=== PATIENT | female | born 1970 | race Hispanic/Latino ===

== ENCOUNTER → 2017-12-21 | Day surgery (SDC) | payer OTHER ==
[2017-12-20 14:46] LABS: BASOPHILS # (AUTO) 0.1 (0.0-0.1); BASOPHILS % 0.9 % (0.0-1.0); EOSINOPHILS # (AUTO) 0.2 (0.0-0.4); EOSINOPHILS % 1.6 % (0.0-6.0); HEMATOCRIT 41.4 % (34.2-44.1); HEMOGLOBIN 13.4 g/dL (12.0-16.0); LYMPHOCYTES # (AUTO) 2.4 (1.0-3.2); LYMPHOCYTES % 18.3 % (18.0-39.1); MEAN CORPUSCULAR HEMOGLOBIN 31.8 pg (28-32); MEAN CORPUSCULAR HGB CONC 32.4 g/dL (31-35); MEAN CORPUSCULAR VOLUME 98.3 fL (81-99); MONOCYTES # (AUTO) 1.2 (0.2-0.8); MONOCYTES % 9.1 % (4.4-11.3); NEUTROPHILS # (AUTO) 9.3 (2.1-6.9); NEUTROPHILS % 69.7 % (38.7-80.0); PLATELET COUNT 348 x10e3/uL (140-360); RED BLOOD COUNT 4.21 x10e6/uL (3.6-5.1)
[2017-12-20 14:59] LABS: INR 0.84; PROTHROMBIN TIME 12.3 seconds (11.9-14.5)
[2017-12-20 15:06] LABS: ALANINE AMINOTRANSFERASE 10 IU/L (0-55); ALBUMIN/GLOBULIN RATIO 1.2 (0.8-2.0); ALKALINE PHOSPHATASE 51 IU/L (40-150); ANION GAP 13.7 mmol/L (8-16); BLOOD UREA NITROGEN 24 mg/dL (7-26); BUN/CREATININE RATIO 24 (6-25); CALCIUM 9.2 mg/dL (8.4-10.2); CARBON DIOXIDE 22 mmol/L (22-29); CHLORIDE 103 mmol/L (98-107); CREATININE, SERUM 0.98 mg/dL (0.57-1.11); EST GLOMERULAR FILTRATION RATE > 60 ML/MIN (60-); GLUCOSE 96 mg/dL (74-118); POTASSIUM 3.7 mmol/L (3.5-5.1); SODIUM 135 mmol/L (136-145)
[2017-12-21] VITALS (12 sets, daily range): BP systolic 78–132; BP diastolic 59–84
[~2017-12-21] VITALS: Ht 157.5 cm; Wt 117.9 kg
[~2017-12-21] MED LIST: ALBUTEROL0.63 MG/3 PO; AMLODIPINE BESY10 MG PO; AZITHROMYCIN250 MG PO; FE C TABLET1 EACH PO; FENTANYL CITRATE/PF 100MCG/2 ML INJ ONE; FLAGYL250 MG PO; FLUOXETINE HCL20 MG PO; FOLIC ACID1 MG PO; HEPARIN SOD (PORCINE) 1000 UNIT/ML 30ML ONE; HYDROCHLOROTHIA25 MG PO; IOPAMIDOL 370 MG/ML 200 ML INFUS..BTL INJ ONE; LASIX40 MG PO; LEVAQUIN500 MG PO; LIDOCAINE HCL 1% LOCAL INJ 20 ML VIAL ONE; LISINOPRIL10 MG PO; MIDAZOLAM HCL 2 MG/2 ML VIAL ONE; MULTIVITAMINS1 EAC7 PO; NEXIUM20 MG PO; NITROGLYCERIN/D5W 200 MCG/ML 250 ML ONE; PREDNISONE10 MG PO; PREDNISONE5 MG PO; PROAIR HFA INH8.5 GM; SINGULAIR10 MG PO; SODIUM CHLORIDE 0.9% 1000ML 1,000 ML ONE; SYMBICORT 80-10.2 GM INH; TOPAMAX25 MG PO; TUMERIC PO; VERAPAMIL HCL 2.5 MG/ML 2 ML VIAL ONE; VITAMIN D1000 UNI1 PO; VITAMIN E400 UNIT PO; XANAX0.5 MG PO; ZESTRIL20 MG PO
--- OUTSIDE RECORDS SUMMARY | 2017-12-21 07:38 | XMS REPORT ---
Author Author [facility] Address Unknown Phone Unavailable Care Team Providers Care Director Of Digital Technology Name Role Phone Unavailable Unavailable Problems This patient has no known problems. Allergies, Adverse Reactions, Alerts This patient has no known allergies or adverse reactions. Medications This patient has no known medications. Encounters Start Date/Time End Date/Time Encounter Type Admission Type Attending Clinicians Care Facility Care Department Encounter ID 2017-03-23 00:00:00 2017-03-24 00:00:00 [facility] [id number]
--- NOTE | 2017-12-21 16:33 | Operative Report ---
DATE OF PROCEDURE: December 21, 2017 INDICATION FOR PROCEDURE: Is dyspnea on exertion and chest pain. PRE-SEDATION ASSESSMENT: Medical history, social history and previous experience with anesthesia were reviewed as documented in the preoperative medical record. Results of relevant diagnostic studies were reviewed. Planned choice of anesthesia, risks, complications, benefits and alternatives were discussed. Patient deemed appropriate candidate for planned choice of anesthesia. CONSENT: The benefits, risks, complications and alternatives to the procedure were discussed with the patient, and informed consent was obtained from patient or her surrogate. MEDICATIONS: Please see nursing notes for medications administered during the procedure. PROCEDURES PERFORMED: 1. Right heart catheterization. 2. Left heart catheterization. 3. Coronary angiography. PROCEDURE DETAILS: Patient was brought to the cardiac catheterization laboratory in a fasting state. Right wrist and right groin were prepped and draped in a sterile fashion, and 1% lidocaine was used to infiltrate the right wrist over the right radial artery. A 6-Indonesian Slender sheath was placed in the right radial artery using the modified Seldinger technique. Coronary angiography was performed using a RotoPop diagnostic catheter to engage both the RCA and LCA as well as to perform the left heart catheterization. Multiple orthogonal views were obtained of each coronary artery. All catheters were removed over a guidewire. The access site was closed using a TR band. For right heart cath, the right common femoral vein was accessed using ultrasound guidance and modified Seldinger technique. A 6-Indonesian sheath was inserted in the right common femoral artery, and right heart cath was performed using a 6-Indonesian [place]-Jorge L catheter. Sheath was removed under manual compression to achieve hemostasis. Case ended without any complications. Estimated blood loss 20 mL. FINDINGS: Left main coronary artery: Large caliber and short, normal. Left anterior descending: Large vessel, goes to the apex. No significant coronary artery disease. Left circumflex: Very large dominant vessel. No significant coronary artery disease. Ramus intermedius: Moderate-sized vessel. No significant coronary artery disease. Right coronary artery: Small, non-dominant RCA. No significant coronary artery disease, Pressures: Aortic pressure 94/64. Mean aortic pressure 79. LV pressure 98/8. LV end-diastolic pressure 20. RA pressure 17/14/13. RV pressure 42/9. End-diastolic pressure of 19. PA pressure 39/20 with mean PA pressure of 26. Pulmonary capillary wedge pressure 22/21/15. COMPLICATIONS: None. SPECIMEN REMOVED: None. IMPLANTS: None. ESTIMATED BLOOD LOSS: 20 mL. RECOMMENDATIONS: 1. Usual post-PCI care until TR band removal. 2. Continue optimal medical therapy and risk-factor control. 3. Follow up in the office 2 weeks post procedure for further management. Thank you for this consult. Job#: [id number]
== END | disposition home or self-care (01) ==
LOC: CATH LAB 07:35
PROVIDERS: ATTEND Internal Medicine
DX: I25.10 Atherosclerotic heart disease of native coronary artery without angina pectoris (principal); I83.92 Asymptomatic varicose veins of left lower extremity; I10 Essential (primary) hypertension; J45.909 Unspecified asthma, uncomplicated; Z72.0 Tobacco use; Z01.812 Encounter for preprocedural laboratory examination; Z68.42 Body mass index [BMI] 45.0-49.9, adult
CPT/HCPCS: 36415; 80053; 81025; 85025; 85610; 93460; J1644; J2001; J2250; J7030; Q9967

== ENCOUNTER 2018-06-02 21:44 | Emergency (ER) | payer SELFPAY ==
[~2018-06-02] VITALS: Ht 157.5 cm; Wt 104.6 kg
[~2018-06-02 21:44] MED LIST changes: -FENTANYL CITRATE/PF 100MCG/2 ML INJ ONE; -HEPARIN SOD (PORCINE) 1000 UNIT/ML 30ML ONE; -IOPAMIDOL 370 MG/ML 200 ML INFUS..BTL INJ ONE; -LIDOCAINE HCL 1% LOCAL INJ 20 ML VIAL ONE; -MIDAZOLAM HCL 2 MG/2 ML VIAL ONE; -NITROGLYCERIN/D5W 200 MCG/ML 250 ML ONE; -SODIUM CHLORIDE 0.9% 1000ML 1,000 ML ONE; -VERAPAMIL HCL 2.5 MG/ML 2 ML VIAL ONE
[2018-06-02 23:22] VITALS: BP 129/82
== END 2018-06-02 23:13 | disposition home or self-care (01) ==
LOC: FSED 21:44
DX: L03.011 Cellulitis of right finger (principal); I10 Essential (primary) hypertension
CPT/HCPCS: 99283

== ENCOUNTER 2018-06-22 15:33 | Emergency (ER) | payer SELFPAY ==
[~2018-06-22] VITALS: Ht 157.5 cm; Wt 104.3 kg
[2018-06-22] MEDS ORDERED: ALBUTEROL SULF 0.083% NEB SOLN 3 ML NEB ONE (15:46)
[2018-06-22] MEDS ORDERED: IPRATROPIUM BROMIDE 0.02% 2.5 ML NEB ONE (15:46)
[2018-06-22] MEDS ORDERED: ALBUTEROL/IPRATROPIUM 3 ML NEB NEB ONE (16:00)
[2018-06-22] MEDS ORDERED: METHYLPREDNISOLONE SOD SUCC 125 MG/2ML VIAL IV ONE (16:00)
[2018-06-22 16:19] LABS: BASOPHILS # (AUTO) 0.1 (0.0-0.1); BASOPHILS % 0.8 % (0.0-1.0); EOSINOPHILS # (AUTO) 0.2 (0.0-0.4); EOSINOPHILS % 1.9 % (0.0-6.0); HEMATOCRIT 37.9 % (34.2-44.1); LYMPHOCYTES # (AUTO) 3.7 (1.0-3.2); LYMPHOCYTES % 31.2 % (18.0-39.1); MEAN CORPUSCULAR HEMOGLOBIN 31.8 pg (28-32); MEAN CORPUSCULAR HGB CONC 34.3 g/dL (31-35); MEAN CORPUSCULAR VOLUME 92.7 fL (81-99); MONOCYTES % 8.4 % (4.4-11.3); NEUTROPHILS # (AUTO) 6.8 (2.1-6.9); NEUTROPHILS % 57.2 % (38.7-80.0); PLATELET COUNT 461 x10e3/uL (140-360); RED BLOOD COUNT 4.09 x10e6/uL (3.6-5.1); RED CELL DISTRIBUTION WIDTH 13.6 % (11.7-14.4)
[2018-06-22 16:41] LABS: ALANINE AMINOTRANSFERASE 24 IU/L (0-55); ALBUMIN 3.9 g/dL (3.5-5.0); ALBUMIN/GLOBULIN RATIO 1.3 (0.8-2.0); ALKALINE PHOSPHATASE 56 IU/L (40-150); ANION GAP 13.9 mmol/L (8-16); BLOOD UREA NITROGEN 18 mg/dL (7-26); BUN/CREATININE RATIO 20 (6-25); CALCIUM 9.6 mg/dL (8.4-10.2); CARBON DIOXIDE 23 mmol/L (22-29); CHLORIDE 102 mmol/L (98-107); CREATININE, SERUM 0.91 mg/dL (0.57-1.11); EST GLOMERULAR FILTRATION RATE > 60 ML/MIN (60-); GLUCOSE 109 mg/dL (74-118); POTASSIUM 3.9 mmol/L (3.5-5.1); SODIUM 135 mmol/L (136-145)
--- NOTE | 2018-06-22 17:00 | NUR ---
PT AMBULATORY TO RESTROOM AT THIS TIME FOR UA, NAD NOTED. BREATHING EVEN/UNLABORED.
--- NOTE | 2018-06-22 17:20 | Diagnostic Imaging Report ---
EXAMINATION: CHEST 2 VIEWS INDICATION: Sepsis. COMPARISON: None FINDINGS: TUBES and LINES: None. LUNGS: Lungs are well inflated. Minimal patchy left basilar opacity, likely atelectasis. There is no evidence of pneumonia or pulmonary edema. PLEURA: No pleural effusion or pneumothorax. HEART AND MEDIASTINUM: The cardiomediastinal silhouette is unremarkable. BONES AND SOFT TISSUES: No acute osseous abnormality. UPPER ABDOMEN: No free air under the diaphragm. Cholecystectomy clips project over the right upper quadrant. IMPRESSION: No acute radiographic abnormality. Signed by: Dr. Anabel Young MD on 06/22/2018 5:16 PM
[2018-06-22 17:42] LABS: BILIRUBIN,URINE NEGATIVE (NEGATIVE); CLARITY,URINE CLEAR (CLEAR); COLOR,URINE YELLOW (YELLOW); KETONES,URINE NEGATIVE (NEGATIVE); LEUKOCYTE ESTERASE ,URINE NEGATIVE (NEGATIVE); NITRITE,URINE NEGATIVE (NEGATIVE); PROTEIN,URINE DIPSTICK NEGATIVE (NEGATIVE); URINE UROBILINOGEN 0.2 mg/dL (0.2 - 1)
[2018-06-22 17:46] LABS: BACTERIA,URINE FEW /HPF; EPITHELIAL CELLS,URINE MODERATE /LPF
[2018-06-22 18:52] VITALS: BP 118/88
== END 2018-06-22 19:15 | disposition home or self-care (01) ==
LOC: ER 15:33
DX: J45.31 Mild persistent asthma with (acute) exacerbation (principal); Z87.891 Personal history of nicotine dependence; I10 Essential (primary) hypertension; K21.9 Gastro-esophageal reflux disease without esophagitis
CPT/HCPCS: 36415; 71046; 80053; 81001; 83605; 84702; 85025; 87040; 87070; 87086; 87205; 87400; 93005; 94640; 99284; J2930

== ENCOUNTER 2019-01-28 19:25 | Emergency (ER) | payer OTHER ==
[~2019-01-28] VITALS: Ht 157.5 cm; Wt 104.3 kg
[2019-01-28] MEDS ORDERED: GABAPENTIN 100 MG CAP PO STA (20:23)
[2019-01-28 21:16] LABS: BASOPHILS # (AUTO) 0.1 (0.0-0.1); BASOPHILS % 1.1 % (0.0-1.0); EOSINOPHILS # (AUTO) 0.5 (0.0-0.4); EOSINOPHILS % 5.2 % (0.0-6.0); HEMOGLOBIN 12.4 g/dL (12.0-16.0); LYMPHOCYTES # (AUTO) 2.9 (1.0-3.2); LYMPHOCYTES % 31.2 % (18.0-39.1); MEAN CORPUSCULAR HEMOGLOBIN 31.1 pg (28-32); MEAN CORPUSCULAR HGB CONC 31.8 g/dL (31-35); MEAN CORPUSCULAR VOLUME 97.7 fL (81-99); MONOCYTES % 11.1 % (4.4-11.3); NEUTROPHILS # (AUTO) 4.7 (2.1-6.9); PLATELET COUNT 370 x10e3/uL (140-360); RED BLOOD COUNT 3.99 x10e6/uL (3.6-5.1); RED CELL DISTRIBUTION WIDTH 13.2 % (11.7-14.4)
[2019-01-28 21:34] LABS: ALANINE AMINOTRANSFERASE 15 IU/L (0-55); ALBUMIN 3.7 g/dL (3.5-5.0); ALBUMIN/GLOBULIN RATIO 1.4 (0.8-2.0); ALKALINE PHOSPHATASE 52 IU/L (40-150); ANION GAP 14.6 mmol/L (8-16); BLOOD UREA NITROGEN 29 mg/dL (7-26); BUN/CREATININE RATIO 31 (6-25); CALCIUM 8.8 mg/dL (8.4-10.2); CARBON DIOXIDE 25 mmol/L (22-29); CHLORIDE 105 mmol/L (98-107); CREATINE KINASE 90 IU/L (29-168); CREATININE, SERUM 0.95 mg/dL (0.57-1.11); EST GLOMERULAR FILTRATION RATE > 60 ML/MIN (60-); GLUCOSE 101 mg/dL (74-118); MAGNESIUM 2.1 MG/DL (1.3-2.1); POTASSIUM 4.6 mmol/L (3.5-5.1); SODIUM 140 mmol/L (136-145)
[2019-01-28] MEDS ORDERED: NEURONTIN300 MG PO (22:14)
[2019-01-28 23:24] VITALS: BP 153/88
== END 2019-01-28 22:21 | disposition home or self-care (01) ==
LOC: ER 19:25
DX: R10.9 Unspecified abdominal pain (principal); M54.5 Low back pain; M79.10 Myalgia, unspecified site
CPT/HCPCS: 36415; 80053; 82550; 82553; 83735; 84484; 85025; 99283

== ENCOUNTER 2019-10-20 12:47 | Emergency (ER) | payer OTHER ==
[~2019-10-20] VITALS: Ht 157.5 cm; Wt 104.3 kg
[~2019-10-20 12:47] MED LIST changes: +NEURONTIN300 MG PO
[2019-10-20] MEDS ORDERED: SODIUM CHLORIDE 0.9% 1000ML 1,000 ML IV STA (13:04)
[2019-10-20] MEDS ORDERED: PANTOPRAZOLE 40 MG 10ML VIAL IV STA (13:04)
[2019-10-20 13:38] LABS: BASOPHILS # (AUTO) 0.1 (0.0-0.1); EOSINOPHILS # (AUTO) 0.2 (0.0-0.4); EOSINOPHILS % 2.4 % (0.0-6.0); HEMATOCRIT 39.3 % (34.2-44.1); HEMOGLOBIN 12.3 g/dL (12.0-16.0); LYMPHOCYTES # (AUTO) 1.7 (1.0-3.2); LYMPHOCYTES % 17.9 % (18.0-39.1); MEAN CORPUSCULAR HGB CONC 31.3 g/dL (31-35); MEAN CORPUSCULAR VOLUME 95.9 fL (81-99); MONOCYTES # (AUTO) 0.9 (0.2-0.8); MONOCYTES % 9.4 % (4.4-11.3); NEUTROPHILS # (AUTO) 6.7 (2.1-6.9); NEUTROPHILS % 69.1 % (38.7-80.0); PLATELET COUNT 386 x10e3/uL (140-360); RED CELL DISTRIBUTION WIDTH 13.2 % (11.7-14.4)
--- OUTSIDE RECORDS SUMMARY | 2019-10-20 13:44 | XMS REPORT | Clinical Summary ---
Author Author [facility] Organization [facility] Address Unknown Phone Unavailable Care Team Providers Care Vb Developer Name Role Phone Kraig Xiao MD PCP Allergies No Known Allergies Medications End Date Status Medication Sig Dispensed Refills Start Date Active traMADoL (ULTRAM) 50 mg Take 1 tablet 20 tablet 0 tabletIndications: Pelvic by mouth 0 organ prolapse every 6 hours quantification stage 3 as needed for rectocele Pain. Active ibuprofen (MOTRIN) 600 mg Take 1 tablet 30 tablet 0 tabletIndications: Pelvic by mouth 0 organ prolapse every 6 hours quantification stage 3 as needed for rectocele Pain. Active albuterol 90 Inhale 2 20.1 g 1 mcg/actuation Puffs by 0 inhalerIndications: Mild mouth 4 times intermittent asthma daily as without complication needed for Wheezing. 08/17/2019 Discontinued (Patient Discha rge) lisinopriL (PRINIVIL) 20 Take 1 tablet 30 tablet 3 mg tabletIndications: by mouth 9 Essential hypertension daily. 08/17/2019 Discontinued (Patient Discha rge) furosemide (LASIX) 40 mg Take 1 tablet 30 tablet 3 tabletIndications: by mouth 9 Essential hypertension daily. 08/17/2019 Discontinued (Patient Discha rge) montelukast (SINGULAIR) Take 1 tablet 30 tablet 3 10 mg tabletIndications: by mouth at 9 Seasonal allergies bedtime nightly. 04/09/2019 Discontinued fluticasone propionate Use 1 Fluvanna 16 g 2 (FLONASE ALLERGY RELIEF) in each 9 50 mcg/actuation nasal nostril sprayIndications: daily. Seasonal allergies 08/17/2019 Discontinued (Patient Discha rge) FLUoxetine (PROZAC) 20 mg Take 2 60 capsule 3 capsuleIndications: capsules by 9 Depression, unspecified mouth daily. depression type 07/24/2019 Discontinued traZODone (DESYREL) 50 mg Take 1 tablet 30 tablet 3 tabletIndications: by mouth at 9 Insomnia, unspecified bedtime type nightly. 04/09/2019 Discontinued albuterol 90 Inhale 2 20.1 g 1 mcg/actuation Puffs by 9 inhalerIndications: Mild mouth 4 times intermittent asthma daily as without complication needed for Wheezing. 04/13/2019 Discontinued (Alternate ther apy) fluticasone Inhale 1 Puff 180 Each 1 propion-salmeterol by mouth 2 9 (ADVAIR DISKUS) 100-50 times daily. mcg/dose diskus inhalerIndications: Mild intermittent asthma without complication 08/17/2019 Discontinued (Patient Discha rge) ergocalciferol (VITAMIN Take 1 12 capsule 0 D2) 50,000 unit capsule by 9 capsuleIndications: mouth weekly. Vitamin D deficiency 04/23/2019 chlorhexidine (PERIDEX) Swish with 473 mL 0 0.12 % mouth 1/2 oz of 9 washIndications: Chronic solution in periodontitis mouth for 30 seconds and spit. Use twice daily for 2 weeks.. 04/09/2019 Discontinued albuterol 90 Inhale 2 20.1 g 1 mcg/actuation Puffs by 0 inhalerIndications: Mild mouth 4 times intermittent asthma daily as without complication needed for Wheezing. 08/17/2019 Discontinued (Patient Discha rge) fluticasone propionate Use 1 Fluvanna 16 g 2 (FLONASE ALLERGY RELIEF) in each 0 50 mcg/actuation nasal nostril sprayIndications: daily. Seasonal allergies 04/13/2019 Discontinued albuterol 90 Inhale 2 20.1 g 1 mcg/actuation Puffs by 0 inhalerIndications: Mild mouth 4 times intermittent asthma daily as without complication needed for Wheezing. 04/13/2019 Discontinued (Reorder) albuterol 90 Inhale 2 25.5 g 1 mcg/actuation Puffs by 0 inhalerIndications: Mild mouth 4 times intermittent asthma daily as without complication needed for Wheezing. 08/17/2019 Discontinued (Patient Discha rge) budesonide-formoteroL Inhale 2 30.6 g 3 03/25 (SYMBICORT HFA) 80-4.5 Puffs by 0 mcg/actuation mouth 2 times inhalerIndications: Mild daily. intermittent asthma without complication 08/17/2019 Discontinued (Patient Discha rge) albuterol 90 Inhale 2 25.5 g 1 mcg/actuation Puffs by 0 inhalerIndications: Mild mouth 4 times intermittent asthma daily as without complication needed for Wheezing. 08/17/2019 Discontinued (Patient Discha rge) traZODone (DESYREL) 50 mg Take 1 tablet 30 tablet 3 tabletIndications: by mouth at 0 Insomnia, unspecified bedtime type nightly. 07/30/2019 Discontinued (Reorder) conjugated estrogens Insert 0.5 g 30 g 0 /0 (PREMARIN) 0.625 mg/gram vaginally 3 0 vaginal cream times weekly. 08/17/2019 Discontinued (Patient Discha rge) conjugated estrogens Insert 0.5 g 30 g 0 /0 (PREMARIN) 0.625 mg/gram vaginally 3 0 vaginal cream times weekly. 08/17/2019 Discontinued (Patient Discha rge) CLONIDINE HCL OR Take by 0 mouth. 08/17/2019 Discontinued (Patient Discha rge) PHENTERMINE HCL 37.5 mg Take 37.5 mg 0 tablet by mouth every morning (before breakfast) Takes 1/2 tab BID . 08/17/2019 Discontinued (Reorder) ibuprofen (MOTRIN) 600 mg Take 1 tablet 30 tablet 0 tabletIndications: Pelvic by mouth 0 organ prolapse every 6 hours quantification stage 3 as needed for rectocele Pain. 08/17/2019 Discontinued (Reorder) traMADoL (ULTRAM) 50 mg Take 1 tablet 20 tablet 0 tabletIndications: Pelvic by mouth 0 organ prolapse every 6 hours quantification stage 3 as needed for rectocele Pain. 08/17/2019 Discontinued (Reorder) docusate sodium (COLACE) Take 1 60 capsule 0 0 100 mg capsule by 0 capsuleIndications: mouth 2 times Pelvic organ prolapse daily for 10 quantification stage 3 days. rectocele 08/17/2019 Discontinued (Reorder) polyethylene glycol 3350 Mix 17 grams 14 Each 0 (GLYCOLAX) 17 gram oral into 4 to 8 0 powder packetIndications: ounces of Pelvic organ prolapse water, juice, quantification stage 3 soda, tea or rectocele coffee and drink as directed. 08/20/2019 polyethylene glycol 3350 Mix 17 grams 14 Each 0 (GLYCOLAX) 17 gram oral into 4 to 8 0 powder packetIndications: ounces of Pelvic organ prolapse water, juice, quantification stage 3 soda, tea or rectocele coffee and drink as directed. 08/27/2019 docusate sodium (COLACE) Take 1 60 capsule 0 0 100 mg capsule by 0 capsuleIndications: mouth 2 times Pelvic organ prolapse daily for 10 quantification stage 3 days. rectocele 10/16/2019 Discontinued (Reorder) albuterol 90 Inhale 2 20.1 g 1 mcg/actuation Puffs by 0 inhalerIndications: Mild mouth 4 times intermittent asthma daily as without complication needed for Wheezing. Active Problems Problem Noted Date Pelvic organ prolapse quantification stage 3 rectocel e 08/09/2019 Overview: Added automatically from request for thacker lizz [id number] Essential hypertension, benign -self terminated medic ine since June 2015 due 06/10/2015 to ? skin rash BP wnl today and at home as per pt Extrinsic asthma with exacerbation 06/10/2015 Anxiety 06/10/2015 H/O colonoscopy with polypectomy 2013 benign polyp re peat in 201806/10/2015 H/O gastric bypass 06/09/2004 Encounters Care Team Description Date Type Specialty Kraig Xiao III, MD Medications 10/16/2019 Orders Only Family Practice Magdaleno Sharma, Kayla Gorman ResidentMD Enterocele (Primary Dx) 09/17/2019 Office Visit Gynecology Sulema Chavarria, ELLIS 08/19/2019 Nurse Triage Phil Elliott MD Exam under anesthesia, Enterocele repair , Posterior colporrhaphy. 08/17/2019 Surgery Americo Agosto MD Royalty, Samantha A, ResidentMD 08/17/2019 Anesthesia Event Phil Elliott MD Pelvic organ prolapse quantification sta ge 3 rectocele (Primary Dx); Essential hypertension, benign -self terminated medicine since June 2015 due to ? skin rash BP wnl today and at home as per pt; Extrinsic asthma with acute exacerbation, unspecified asthma severity, unspecified whether persistent; Anxiety; H/O gastric bypass; H/O colonoscopy with polypectomy 2013 benign polyp repeat in 201808/17/2019 Hospital Encounter Kraig Xiao III, MD Zambare, Sonal N, MD Essential hypertension, benign -self ter minated medicine since June 2015 due to ? skin rash BP wnl today and at home as per pt (Primary Dx) 08/15/2019 Hospital Anesthesiology Encounter Nara Chandler MD 08/15/2019 Hospital Lab Encounter Hilda Pimentel ResidentMD 08/10/2019 Orders Only Obstetrics Lakeshia Aguilar NP 08/09/2019 Orders Only Gynecology Adriano Rahman ResidentMD Pelvic organ prolapse quantification sta ge 3 rectocele (Primary Dx) 07/30/2019 Office Visit Gynecology Kraig Xiao III, MD Medications 07/24/2019 Refill [facility] Maddie Hernandez MD Uterine prolapse (Primary Dx); Left hip pain; Mild intermittent asthma without complication 04/13/2019 Office Visit [facility] Maddie Hernandez MD 04/13/2019 Orders Only [facility] Kraig Xiao III, MD Medications 04/13/2019 Refill [facility] Kraig Xiao III, MD Medications 04/09/2019 Refill [facility] Kraig Xiao III, MD Medications 04/09/2019 Refill [facility] Laverne Almaguer DDS Chronic periodontitis (Primary Dx) 12/19/2018 Office Visit Dentistry after 10/19/2018 Immunizations Name Administration Dates Next Due Influenza <Unspecified> 04/10/2019 Tdap (Tetanus Toxoid, 06/05/2018 Reduced Diphtheria Toxoid And Acellular Pertussis, Absorbed) Family History Medical History Relation Name Comments Cancer Father brain cancer and sk in cancer COPD Mother Heart Mother [place] Diabetes Sister Relation Name Status Comments Father Mother Sister Social History Date Tobacco Use Types Packs/Day Years Used Current Some Day Smoker Smokeless Tobacco: Never Used Tobacco Cessation: Counseling Given: No Drinks/Week oz/Week Comments Alcohol Use 0 Standard drinks or equivalent 0.0 Yes Food Insecurity Answer Date Recorded Within the past 12 months, you worried that your Never slava e 06/05/2018 food would run out before you got money to buy more. Within the past 12 months, the food you bought Never true 06/05/2018 just didn't last and you didn't have mo vishal to get more. Sex Assigned at Date Recorded Not on file Industry Job Start Date Occupation Not on file Not on file Not on file Travel End Travel History Travel Start No recent travel history available. Last Filed Vital Signs Reading Time Taken Comments Vital Sign 129/85 09/17/2019 11:14 AM CDT Blood Pressure 69 09/17/2019 11:14 AM CDT Pulse 36.7 C (98 F) 09/17/2019 11:14 AM CDT Temperature 20 09/17/2019 11:14 AM CDT Respiratory Rate 93% 08/17/2019 1:30 PM CDT Oxygen Saturation - - Inhaled Oxygen Concentration 92.7 kg (204 lb 4.8 oz) 09/17/2019 11:14 AM CDT Weight 157.5 cm (5' 2") 09/17/2019 11:14 AM CDT Height 37.37 09/17/2019 11:14 AM CDT Body Mass Index Plan of Treatment Health Maintenance Due Date Last Done Comments Breast Cancer Scrn 07/28/2019 07/27/2018, (Yearly) 06/10/2015, 06/10/2015 Cervical Cancer Scrn (1 07/28/2019 07/27/2018 Yrs) Procedures Comments Procedure Name Priority Date/Time Associated Diag nosis INTUBATION Routine 08/17/2019 8:00 AM CDT REPAIR POSTERIOR 08/17/2019 Pelvic organ prolap se 7:30 AM CDT quantification stage 3 rectocele Special Needs Arrival time 6 am; confirmed arrival time with patient POCT URINE DIPSTICK - Routine 08/17/2019 6:30 AM CDT ECHG EKG PROC 12 LEAD Routine 08/15/2019 [facility] hypertension, EKG; TRACING ONLY 11:46 AM CDT benign -self termin ated medicine since June 2015 due to ? skin rash BP wnl today and at home as per pt ABO/RH CONFIRMATION Routine 08/15/2019 Pre-op julia ting 11:37 AM CDT CBC Routine 08/15/2019 Pre-op testing 11:26 AM CDT T&S - COLLECTION Routine 08/15/2019 Pre-op testin g 11:26 AM CDT CBC/DIFF Routine 08/15/2019 Pre-op testing 11:26 AM CDT TYPE AND SCREEN Routine 08/15/2019 Pre-op testing 11:26 AM CDT CORONAVIRUS, COVID-19, Routine 08/15/2019 Pelvic organ prolapse TIANA 11:15 AM CDT quantification stag e 3 rectocele after 10/19/2018 Results * Intubation (08/17/2019 8:00 AM CDT) Narrative Performed At Ifeanyi Rodríguez ResidentMD 08/17/2019 8:01 AM Intubation Urgency: elective Airway not difficult General Information and Staff Patient location during procedure: OR Anesthesiologist: Americo Agosto MD Resident/ON CAR SUPERVISOR: Ifeanyi Rodríguez Re sidentMD Performed: resident/ON CAR SUPERVISOR Indications and Patient Condition Indications for airway management: anes thesia Spontaneous Ventilation: absent Sedation level: deep Preoxygenated: yes Patient position: sniffing MILS not maintained throughout Mask difficulty assessment: 0 - not att empted Final Airway Details Final airway type: supraglottic airway Successful airway: I-Gel Size 4 Number of attempts at approach: 1 Additional Comments Zac Rodríguez MD Drug Department Worker, PGY-2 [facility] p: [phone] #[id number] * POCT Urine - test for females 10 to 55 years old (08/17/2019 6:30 AM CDT) Specimen Urine Narrative Performed At UPT Negative Control test pass * 12 LEAD EKG (08/15/2019 11:46 AM CDT) [address] [facility] Test Date: 2019-08-15 Pat Name: TONI AMOS Department: [id number] Room: Gender: F Manager Environmental Services: [id number] : 1970 Requested By: XU Blandon Order Number: [id number] Reading MD: Jonatan García M.D. Measurements Intervals [place] Rate: 81 P: 60 DC: 168 QRS: 81 QRSD: 89 T: 70 QT: 360 QTc: 420 Interpretive Statements SINUS RHYTHM WITH MARKED SINUS ARRHYTHMIA LOW QRS VOLTAGE IN PRECORDIAL LEADS Electronically Signed On 08-15-2019 16:40:38 CDT by Jonatan García M.D. Specimen Performing Organization Address [facility] one Number SMS * ABO/RH CONFIRMATION (08/15/2019 11:37 AM CDT) ABO/RH A POS BT BLOOD BANK Specimen Blood Performing Organization Address [facility] one Number BT BLOOD BANK [address] [place] [address] * CBC/Diff (08/15/2019 11:26 AM CDT) WBC 8.2 4.5 - 11.0 K/uL [facility] RBC 4.03 (L) 4.20 - 5.40 M/uL [facility] Hemoglobin 12.4 12.0 - 16.0 g/dL [facility] Hematocrit 40.1 37.0 - 47.0 % [facility] MCV 99.5 (H) 82.0 - 92.0 fL [facility] MCH 30.8 27.0 - 32.0 pg [facility] MCHC 30.9 (L) 32.0 - 36.0 g/dL [facility] RDW 47.6 (H) 36.4 - 46.3 fL [facility] Platelet 390 150 - 400 K/uL [facility] Mean Platelet 8.9 (L) 9.4 - 12.4 fL [facility] Percent NRBC 0.0 % [facility] Neutrophil 56.7 34.0 - 70.0 % [facility] Lymphs 29.5 20.0 - 50.0 % [facility] Monocytes 8.8 5.0 - 12.0 % [facility] Eos 3.4 0.7 - 5.0 % [facility] Basos 1.2 0.1 - 1.2 % [facility] Immature 0.4 0.0 - 0.5 % [facility] Neutrophils 4.62 1.56 - 6.13 K/uL [facility] (Absolute) [facility] Lymphs 2.41 1.18 - 3.74 K/uL [facility] (Absolute) [facility] Monocytes(Absol 0.72 (H) 0.24 - 0.36 K/uL [facility] [place] Eos (Absolute) 0.28 0.04 - 0.36 K/uL [facility] Baso (Absolute) 0.10 (H) 0.01 - 0.08 K/uL [facility] Immature Grans 0.03 0.00 - 0.03 K/uL [facility] (Abs) [facility] Absolute NRBC 0.00 K/uL [facility] Specimen Blood Performing Organization Address [facility] one Number [facility] [address] [place] [address] * T&S Collection (08/15/2019 11:26 AM CDT) Specimen 08/18/2019 23:59 BT BLOOD BANK Expiration ABO/RH A POS BT BLOOD BANK Antibody Screen NEG BT BLOOD BANK Specimen Blood Performing Organization Address [facility] one Number BLOOD BANK [address] [place] [address] * Coronavirus, CoVID-19, TIANA (08/15/2019 11:15 AM CDT) COVID-19 Not DetectedComment: Not Detected [facility] (SARS-COV-2) INTERPRETATION: No detectable LABORAT ORY levels of SARS-CoV-2 Coronavirus (COVID-19) were present in this patient's sample by this test. A not detected result does not exclude the possibility of active infection with this virus due to other factors that may affect the results such as a poorly collected sample, viral titers below the limit of detection of the assay, and the infrequent possibility of inhibitors in the sample. This result should be interpreted in conjunction with clinical, radiographic, and other laboratory findings and should not be used as the sole indicator of active infection with SARS-CoV-2 Coronavirus (COVID-19). Specimen Other (Specify in Comments) - Nasopharynx Narrative Performed At COMMENT: This [employer] TaqPath COVID-19 leopoldo l-time PCR Emergency Use [facility] Authorization (EUA) test was developed, and its performance characteristics determined [facility]. It has been validated by bridging studies under the FDA "Policy for Diagnostic Tests for Coronavirus Disease-2019 during the [facility] Emergency". This laboratory is certified under federal CLIA regulation s to perform this type of high complexity testing. Performing Organization Address City/State/Zipcode Ph one Number [facility] [address] [place] [address] after 10/19/2018 Insurance Type Payer Benefit Subscriber ID Effective Phone Address Plan / Dates Group [employer] xxxxxxxxxx 2019-9 [address] [address] [place] [address] [facility] xxxxxxx 2019-P [address] INDIGENT FAMILY [id number] [address] [employer] xxxxxxx 2019-3 [address] [facility] [place] [address]
--- OUTSIDE RECORDS SUMMARY | 2019-10-20 13:44 | XMS REPORT | Continuity of Care Document ---
Author Author [facility] t Organization [facility] Address [address] [place] [address] Phone Unavailable Care Team Providers Care Lead Painter Name Role Phone NONSTAFF PCP Unavailable Dameon MOSELEY, Ck Cornell Attphys Edith ResidentMD, Magdaleno Attphys [phone] Cristian ResidentMD, L Kayla Attphys [phone] Aura CORRAL, Gopi Leone Attphys Unavailable Earl MOSELEY, Dexter Villarreal Attphys Surendra MOSELEY, Americo Attphys Sunny ResidentMD, A Estella Attphys Lou MOSELEY, Barber Marin Attphys Geraldine MOSELEY, Nara Attphys Homabarak ResidentMD, Hilda Attphys [phone] Jeff HERRERA, E Lakeshia Attphys Josiah ResidentMD, M Adriano Attphys [phone] David MOSELEY, Pia Perkins Attphys Tripp MARCUMS, Katja Galloway Attphys Katja JORDAN Attphys Unavailable Payers Payer Name Policy Type Policy Number Effective Date Expiration Date Rj CASPER [employer]ETPL[employer] MARKETPLACExxxx /[id number] [address] [address] xxxxxxxxxx 2019 00:00:0 0 2020 23:59:59 [facility] FAMILY PLANNING INDIGENTTEXAS FAMI LY PLANNING [id number] [address], [place] [address] xxxxxxx 2019 00:00:00 [facility] PLANFINANCIAL ASSISTANCE PROGRAMxxx xxxx2019-//[id number] [place] [address] xxxxxxx 2019 00:00:00 04-28 23:59:59 [facility] [employer] [id number] 2017 00:00:00 [facility] Problems Condition Name Condition Details Condition Category Status Onset Date Resolution Date Last Treatment Date Treating Clinician Comments Source Pelvic organ prolapse quantification stage 3 rectocele Pelvic organ prolapse quantification stage 3 rectocele Disease Active 2019-08-09 00:00:00 Overview: Added automatically from request for surgery [id number] [facility] Essential hypertension, benign -self ter minated medicine since June 2015 due to ? skin rash BP wnl today and at home as per pt Essential hypertension, benign - self terminated medicine since June 2015 due to ? skin rash BP wnl today and at home as per pt Disease Active 2015-06-10 00:00:00 [facility] Extrinsic asthma with exacerbation Extrinsic asthma with exacerb ation Disease Active 2015-06-10 00:00:00 [facility] Anxiety Anxiety Disease Active 2015-06-10 00:00:00 [facility] H/O colonoscopy with polypectomy 2014 benign polyp rep eat in 2019 H/O colonoscopy with polypectomy 2014 benign polyp repeat in 2019 Disease Active 2015-06-10 00:00:00 [facility]alth Abdominal pain Abdominal pain Problem Active 2014-03-18 00:00:00 [facility] Leukocytosis Leukocytosis Problem Active 2014-03-18 00:00:00 [facility] Rectal hemorrhage Rectal bleeding Problem Active 2014-03-18 00:00:00 [facility] H/O gastric bypass H/O gastric bypass Disease Active 2004-06-09 00:00:0 0 [facility] Allergies, Adverse Reactions, Alerts This patient has no known allergies or adverse reactions. Family History Family Member Diagnosis Comments Start Date Stop Date Source Natural father Cancer [facility] Natural mother COPD [facility] Natural mother Heart [facility] Natural sister Diabetes [facility] Social History Social Habit Start Date Stop Date Quantity Comments Source Sex Assigned At [facility] Alcohol intake 2019-09-17 00:00:00 2019-09-17 00:00:00 Current drinker of alcohol (finding) [facility] History SDOH Food Worry 2018-06-05 00:00:00 2018-06-05 00:00:00 1 [facility] Food Scarcity 2018-06-05 00:00:00 2018-06-05 00:00:00 1 [facility] Smoking Status Start Date Stop Date Source Current some day smoker 2019-09-17 00:00:00 [facility] Medications Ordered Medication Name Filled Medication Name Start Date Stop Da te Current Medication? Ordering Clinician Indication Dosage Frequency Signature (SIG) Comments Components Source albuterol 90 mcg/actuation inhaler 2019-10-16 00:00:00 Yes Mild intermittent asthma without complication 2{puff} Inhale 2 Puffs by mouth 4 times daily as needed for Wheezing. [facility] LeadFire albuterol 90 mcg/actuation inhaler 2019-10-16 00:00:00 00:00:00 No Mild intermittent asthma without complication 2{puff} Inhale 2 Puffs by mouth 4 times daily as needed for Wheezing. [facility] CLONIDINE HCL OR 2019-08-17 07:06:42 2019-08-17 00:00:00 No Take by mouth. [facility] PHENTERMINE HCL 37.5 mg tablet 2019-08-17 07:06:42 2019-08-17 00 :00:00 No 37.5mg QD Take 37.5 mg by mouth every morning (before breakfast) Takes 1/2 tab BID . [facility] traMADoL (ULTRAM) 50 mg tablet 2019-08-17 00:00:00 Yes Pelvic organ prolapse quantification stage 3 rectocele 50mg Take 1 tablet by mouth every 6 hours as needed for Pain. [facility] ibuprofen (MOTRIN) 600 mg tablet 2019-08-17 00:00:00 Yes Pelvic organ prolapse quantification stage 3 rectocele 600mg Take 1 tablet by mouth every 6 hours as needed for Pain. [facility] docusate sodium (COLACE) 100 mg capsule 00:00:00 2019-08-27 23:59:00 No Pelvic organ prolapse quantification stage 3 re ctocele 100mg Q.5D Take 1 capsule by mouth 2 times daily for 10 days. [facility] polyethylene glycol 3350 (GLYCOLAX) 17 gram oral powder pack et 2019-08-17 00:00:00 2019-08-20 23:59:00 No Pelvic organ prolapse quantification stage 3 rectocele Mix 17 grams into 4 to 8 ounces of water, juice, soda, tea or coffee and drink as directed. [facility] ibuprofen (MOTRIN) 600 mg tablet 2019-08-17 00:00:00 2019-07 00:00:00 No Pelvic organ prolapse quantification stage 3 rectocele 600mg Take 1 tablet by mouth every 6 hours as needed for Pain. [facility] traMADoL (ULTRAM) 50 mg tablet 2019-08-17 00:00:00 2019-07-24 00:00:00 No Pelvic organ prolapse quantification stage 3 rectocele 50mg Take 1 tablet by mouth every 6 hours as needed for Pain. [facility] docusate sodium (COLACE) 100 mg capsule 00:00:00 2019-08-17 00:00:00 No Pelvic organ prolapse quantification stage 3 re ctocele 100mg Q.5D Take 1 capsule by mouth 2 times daily for 10 days. [facility] polyethylene glycol 3350 (GLYCOLAX) 17 gram oral powder pack et 2019-08-17 00:00:00 2019-08-17 00:00:00 No Pelvic organ prolapse quantification stage 3 rectocele Mix 17 grams into 4 to 8 ounces of water, juice, soda, tea or coffee and drink as directed. [facility] conjugated estrogens (PREMARIN) 0.625 mg/gram vaginal cream 2019-07-30 00:00:00 2019-08-17 00:00:00 No .5g Insert 0.5 g vaginally 3 times weekly. [facility] conjugated estrogens (PREMARIN) 0.625 mg/gram vaginal cream 2019-07-30 00:00:00 2019-07-30 00:00:00 No .5g Insert 0.5 g vaginally 3 times weekly. [facility] traZODone (DESYREL) 50 mg tablet 2019-07-24 00:00:00 2019-07 00:00:00 No Insomnia, unspecified type 50mg Take 1 tablet by mouth at b edtime nightly. [facility] budesonide-formoteroL (SYMBICORT HFA) 80-4.5 mcg/actuation i nhaler 2019-04-13 00:00:00 2019-08-17 00:00:00 No Mild intermittent ast hma without complication 2{puff} Q.5D Inhale 2 Puffs by mouth 2 times daily. [facility] albuterol 90 mcg/actuation inhaler 2019-04-13 00:00:00 00:00:00 No Mild intermittent asthma without complication 2{puff} Inhale 2 Puffs by mouth 4 times daily as needed for Wheezing. [facility] albuterol 90 mcg/actuation inhaler 2019-04-13 00:00:00 00:00:00 No Mild intermittent asthma without complication 2{puff} Inhale 2 Puffs by mouth 4 times daily as needed for Wheezing. [facility] albuterol 90 mcg/actuation inhaler 2019-04-13 00:00:00 00:00:00 No Mild intermittent asthma without complication 2{puff} Inhale 2 Puffs by mouth 4 times daily as needed for Wheezing. [facility] fluticasone propionate (FLONASE ALLERGY RELIEF) 50 mcg/actua tion nasal spray 2019-04-09 00:00:00 2019-08-17 00:00:00 No Seasonal allergies 1 {spray} QD Use 1 [place] in each nostril daily. [facility] alth albuterol 90 mcg/actuation inhaler 2019-04-09 00:00:00 00:00:00 No Mild intermittent asthma without complication 2{puff} Inhale 2 Puffs by mouth 4 times daily as needed for Wheezing. [facility] Gabapentin (Neurontin) 300 Mg Capsule Gabapentin (Neurontin) 300 Mg Capsule 2019-01-28 00:00:00 Yes Juan Garcia [employer] 300 Three Times A Day as needed for Mild Pain (1-3) Or Fever>100.8 [facility] chlorhexidine (PERIDEX) 0.12 % mouth wash 2018-02 0-29 00:00:00 2019-04-23 23:59:00 No Chronic periodontitis Swi sh with 1/2 oz of solution in mouth for 30 seconds and spit. Use twice daily for 2 weeks.. [facility] ergocalciferol (VITAMIN D2) 50,000 unit capsule 2018-07-12 00:00:00 2019-08-17 00:00:00 No Vitamin D deficiency 27979W Take 1 capsule by mouth weekly. [facility] lisinopriL (PRINIVIL) 20 mg tablet 2018-06-05 00:00:00 00:00:00 No Essential hypertension 20mg QD Take 1 tablet by mouth inga y. [facility] furosemide (LASIX) 40 mg tablet 2018-06-05 00:00:00 00:00:00 No Essential hypertension 40mg QD Take 1 tablet by mouth daily. [facility] montelukast (SINGULAIR) 10 mg tablet 2018-06-05 00:00: 00 2019-08-17 00:00:00 No Seasonal allergies 10mg Take 1 tablet by mouth at bed time nightly. [facility] FLUoxetine (PROZAC) 20 mg capsule 2018-06-05 00:00:00 2019 00:00:00 No Depression, unspecified depression type 40mg QD T oswaldo 2 capsules by mouth daily. [facility] traZODone (DESYREL) 50 mg tablet 2018-06-05 00:00:00 2019-07 00:00:00 No Insomnia, unspecified type 50mg Take 1 tablet by mouth at b edtime nightly. [facility] fluticasone propion-salmeterol (ADVAIR DISKUS) 100-50 mcg/do se diskus inhaler 2018-06-05 00:00:00 2019-04-13 00:00:00 No Mild int ermittent asthma without complication 1{puff} Q.5D Inhale 1 Puff by mouth 2 times daily. [facility] fluticasone propionate (FLONASE ALLERGY RELIEF) 50 mcg/actua tion nasal spray 2018-06-05 00:00:00 2019-04-09 00:00:00 No Seasonal allergies 1 {spray} QD Use 1 [place] in each nostril daily. [facility] albuterol 90 mcg/actuation inhaler 2018-06-05 00:00:00 202 00:00:00 No Mild intermittent asthma without complication 2{puff} Inhale 2 Puffs by mouth 4 times daily as needed for Wheezing. [facility] Albuterol Sulfate 0.63 Mg/3 Ml Vial.neb Albuterol Sulfate 0. 63 Mg/3 Ml Vial.neb Yes .[address] [facility] Amlodipine Besylate 10 Mg Tablet Amlodipine Besylate 10 Mg Tablet Yes 10 Daily [facility] Cholecalciferol (Vitamin D3) (Vitamin D) 1,000 Unit [place] Cholecalciferol (Vitamin D3) (Vitamin D) 1,000 Unit Tablet Yes 5000 Daily [facility] Fluoxetine Hcl 20 Mg Capsule Fluoxetine Hcl 20 Mg Capsule Y es 20 Daily [facility] Furosemide (Lasix) 40 Mg Tablet Furosemide (Lasix) 40 Mg Tablet Yes 40 Daily [facility] Lisinopril 10 Mg Tablet Lisinopril 10 Mg Tablet Yes 10 Daily [facility] Montelukast Sodium (Singulair) 10 Mg Tablet Montelukas t Sodium (Singulair) 10 Mg Tablet Yes 10 Bedtime as needed for Allergy [facility] Multivitamin (Multivitamins) 1 Each Capsule Multivitam in (Multivitamins) 1 Each Capsule Yes 1 Daily [facility] Topiramate (Topamax) 25 Mg Tablet Topiramate (Topamax) 25 Mg Tablet Yes 10 Daily [facility] Tumeric Tumeric Yes 1 Daily [facility] Vitamin E Acetate (Vitamin E) 400 Unit Capsule Vitamin E Acetate (Vitamin E) 400 Unit Capsule Yes 400 Use As Directed [facility] Esomeprazole Magnesium (Nexium) 20 Mg Capsule.dr 20 M g Oral Esomeprazole Magnesium (Nexium) 20 Mg Capsule.dr 20 Mg Oral 2017-12-20 00:00:00 No 20 Daily [facility] Iron,Carbonyl/Ascorbic Acid (Fe C Tablet) 1 Each Table t, 1 Tab Oral Iron,Carbonyl/Ascorbic Acid (Fe C Tablet) 1 Each Tablet, 1 Tab Oral 2017-12-20 00:00:00 No 1 Daily [facility] Lisinopril (Zestril*) 20 Mg Tablet, 20 Mg Oral Lisinop ril (Zestril*) 20 Mg Tablet, 20 Mg Oral 2017-12-20 00:00:00 No 20 Daily [facility] Albuterol Sulfate (Proair Hfa Inhaler*) 8.5 Gm Inh, Al buterol Sulfate (Proair Hfa Inhaler*) 8.5 Gm Inh, 2015-03-20 00:00:00 No As Needed [facility] Alprazolam (Xanax) 0.5 Mg Tablet, 0.5 Mg Oral Alprazol am (Xanax) 0.5 Mg Tablet, 0.5 Mg Oral 2015-03-20 00:00:00 No .5 Twice A Day [facility] Budesonide/Formoterol Fumarate (Symbicor t 80-4.5 Mcg Inhaler) 10.2 Gm Hfa.aer.ad, 1 Each Inhalation Budesonide/Formoterol Fumarate (Symbicor t 80-4.5 Mcg Inhaler) 10.2 Gm Hfa.aer.ad, 1 Each Inhalation 2015-03-20 00:00:0 0 No 1 Every 12 Hours [facility] Folic Acid 1 Mg Tablet, 1 Mg Oral Folic Acid 1 Mg Tablet, 1 Mg O ral 2015-03-20 00:00:00 No 1 Daily [facility] Hydrochlorothiazide 25 Mg Tablet, 25 Mg Oral Hydrochlo rothiazide 25 Mg Tablet, 25 Mg Oral 2015-03-20 00:00:00 No 25 Daily [facility] Levofloxacin (Levaquin) 500 Mg Tablet, 500 Mg Oral Lev ofloxacin (Levaquin) 500 Mg Tablet, 500 Mg Oral 2014-07-24 00:00:00 No 500 D aily [facility] Metronidazole (Flagyl) 250 Mg Tablet, 500 Mg Oral Metr onidazole (Flagyl) 250 Mg Tablet, 500 Mg Oral 2014-07-24 00:00:00 No 500 Thre e Times A Day [facility] Azithromycin (Z-Jourdan) 250 Mg Tablet, 250 Mg Oral Azithr omycin (Z-Jourdan) 250 Mg Tablet, 250 Mg Oral 2014-03-19 00:00:00 No 250 [facility] Prednisone 10 Mg Tab, 10 Mg Oral Prednisone 10 Mg Tab, 10 Mg Ora l 2014-03-19 00:00:00 No 10 Daily [facility] Prednisone 5 Mg Tablet, 5 Mg Oral Prednisone 5 Mg Tablet, 5 Mg O ral 2013-11-19 00:00:00 No 5 Three Times A Day [facility] Immunizations Ordered Immunization Name Filled Immunization Name Date Status Comments Source Influenza <Unspecified> 2019-04-10 00:00:00 Completed [facility] Tdap (Tetanus Toxoid, Reduced Diphtheria Toxoid And Acellular Pertussis, Absorbed) 2018-06-05 00:00:00 Completed [facility] Vital Signs Vital Name Observation Time Observation Value Comments Source Systolic blood pressure 2019-09-17 11:14:00 129 mm[Hg] [facility] Diastolic blood pressure 2019-09-17 11:14:00 85 mm[Hg] [facility] Heart rate 2019-09-17 11:14:00 69 /min [facility] Body temperature 2019-09-17 11:14:00 36.67 [facility] Respiratory rate 2019-09-17 11:14:00 20 /min [facility] Body height 2019-09-17 11:14:00 157.5 cm [facility] Body weight 2019-09-17 11:14:00 92.67 kg [facility] BMI 2019-09-17 11:14:00 37.37 kg/m2 [facility] Oxygen saturation in Arterial blood by Pulse oximetry 08-16 13:30:00 93 /min [facility] Procedures Procedure Date / Time Performed Performing Clinician Sourc e INTUBATION 2019-08-17 08:00:29 Ifeanyi Rodríguez [facility] REPAIR POSTERIOR 2019-08-17 07:30:00 Phil Elliott [facility] POCT URINE DIPSTICK - 2019-08-17 06:30:00 Nilo Correa [facility] ECHG EKG PROC 12 LEAD EKG; TRACING ONLY 2019-08-15 11:46:45 Estella Blackburn [facility] ABO/RH CONFIRMATION 2019-08-15 11:37[facility]EN 2019-08-15 11:26:00 Hilda Pimentel [facility] CBC/DIFF 2019-08-15 11:26:00 Hilda Pimentel [facility] T&S - COLLECTION 2019-08-15 11:26:00 Hilda Pimentel [facility] th CBC 2019-08-15 11:26:00 [facility] CORONAVIRUS, COVID-19, TIANA 2019-08-15 11:15:00 Mali Aguilar [facility] X-ray of chest, two views 2018-06-22 00:00:00 SHANI JORDAN [facility] DRAINAGE OF FINGER ABSCESS 2018-06-02 00:00:00 LEN JARQUIN [facility] Plan of Care Planned Activity Planned Date Details Comments Source Future Scheduled Test 2019-07-28 00:00:00 Breast Cancer Scrn (Yearly) [code = Breast Cancer Scrn (Yearly)] [facility] Future Scheduled Test 2019-07-28 00:00:00 Screening for cody gnant neoplasm of cervix (procedure) [code = 099777733] [facility] Encounters Start Date/Time End Date/Time Encounter Type Admission Type [facility] Care Department Encounter ID Source 2019-07-30 00:00:00 2019-07-30 00:00:00 Outpatient [facility] [id number] [facility] 2019-04-13 10:14:03 2019-04-13 10:14:03 Outpatient [facility] [id number] [facility] 2019-01-28 19:25:00 2019-01-28 22:21:[address] [facility] [id number] [facility] 2018-12-19 14:56:35 2018-12-19 14:56:35 Outpatient [facility] [id number] [facility] 2018-11-06 00:00:00 2018-11-06 00:00:00 Outpatient [facility] [id number] [facility] 2018-07-27 09:35:02 2018-07-27 09:35:02 Outpatient [facility] [id number] [facility] 2018-07-27 08:28:42 2018-07-27 08:28:42 Outpatient [facility] [id number] [facility] 2018-07-27 00:00:00 2018-07-27 00:00:00 Outpatient [facility] [id number] [facility] 2018-07-21 00:00:00 2018-07-21 00:00:00 Outpatient [facility] [id number] [facility] 2018-07-20 11:01:01 2018-07-20 11:01:01 Outpatient [facility] [id number] [facility] 2018-07-05 08:24:58 2018-07-05 08:24:58 Outpatient [facility] [id number] [facility] 2018-06-22 15:33:00 2018-06-22 19:15:00 Departed Emergency Room [address] [facility] [id number] [facility] 2018-06-02 21:44:00 2018-06-02 23:13:[address] [facility] [id number] [facility] 2017-12-21 07:35:00 2017-12-21 07:35:00 Registered Surgical Day Care [facility] [id number] [facility] Results Test Description Test Time Test Comments Results Result Comments Source Intubation 2019-08-17 08:00:29 Zac Rodríguez ResidentMD 08/17/2019 8:01 AMIntubationUrgency: elective Airway not difficult General Information and Staff Patient location during procedure: ORAnesthesiologist: Americo Agosto MDResident/FLOWERS SALESPERSON: Ifeanyi Rodríguez ResidentMDPerformed: resident/FLOWERS SALESPERSON Indications and Patient ConditionIndications for airway management: anesthesiaSpontaneous Ventilation: absentSedation level: deepPreoxygenated: yesPatient position: sniffingMILS not maintained throughoutMask difficulty assessment: 0 - not attempted Final Airway DetailsFinal airway type: supraglottic airway Successful airway: I-GelSize 4 Number of attempts at approach: 1 Additional Comments Zac Pirko, MDAnesthesia Resident, PGY-2BMenlo Park Surgical Hospitalp: [phone]#[id number] Maki [facility] POCT Urine - test for females 10 to 55 years old 2 06:35:00 Test Item KEM (test code = KEM) UPT Negative Control test pass Lab Interpretation (test code = 41749-1) Normal [facility], CoVID-19, [id number] 20:26:00* Test Item Value Reference Range Interpretation Comments COVID-19 (SARS-COV-2) (test code = 05173-8) Not Detected Not Detect ed INTERPRETATION: No detectable levels of SARS-CoV-2 Coronavirus (COVID-19) were present [...] of active infection with SARS-CoV-2 Coronavirus (COVID-19). KEM (test code = KEM) COMMENT: This [employer] TaqPath COVID-19 real- time PCR Emergency Use Authorization (EUA) test was developed, and its performance characteristics determined by the [facility] molecular di agnostic Laboratory. It has been validated by bridging studies under the FDA "Policy for Diagnostic Tests for Coronavirus Disease-2019 during the Public Health Emergency". This laboratory is certified under federal CLIA regulations to perform this type of high complexity testing. Lab Interpretation (test code = 66172-1) Normal [facility]12 LEAD [id number] 16:40:4112 LEAD EKG FOR CHP [facility] Test Date: 0988-47-57Duq Name: TONI BARAHONA Department: 5213Patient ID: [id number] Room: Gender: F [employer] Core Layer: [id number]: 1970 Requested By: XU Burton Number: [id number] Reading MD: Jonatan García M.D. MeasurementsIntervals [place] Rate: 81 P: 60PR: 168 QRS: 81QRSD: 89 T: 70QT: 360 QTc: 420 Interpretive StatementsSINUS RHYTHM WITH MARKED SINUS ARRHYTHMIALOW QRS VOLTAGE IN PRECORDIAL LEADSElectronically Signed On 08-15-2019 16:40:38 CDT by Jonatan García M.D.[facility] HospitalT&[facility] [id number] 13:03:00* Test Item Value Reference Range Interpretation Comments Specimen Expiration (test code = 99818909) 08/18/2019 23:59 ABO/RH (test code = 16602768) A POS Antibody Screen (test code = 32798973) NEG [facility] [id number] 12:55:00* Test Item Value Reference Range Interpretation Comments ABO/RH (test code = 83802640) A POS [facility] HealthCBC/[id number] 11:56:00* Test Item Value Reference Range Interpretation Comments WBC (test code = 6690-2) 8.2 K/uL 4.5-11 RBC (test code = 789-8) 4.03 4.20- 5.40 M/uL L Hemoglobin (test code = 718-7) 12.4 g/dL 12-16 Hematocrit (test code = 4544-3) 40.1 % 37-47 MCV (test code = 787-2) 99.5 fL 82-92 H MCH (test code = 785-6) 30.8 pg 27-32 MCHC (test code = 786-4) 30.9 g/dL 32-36 L RDW (test code = 60378-1) 47.6 fL 36.4-46.3 H Platelet (test code = 777-3) 390 K/uL 150-400 Mean Platelet Volume (test code = 35648-5) 8.9 fL 9.4-12.4 L Percent NRBC (test code = 77528268) 0.0 % Neutrophil (test code = 770-8) 56.7 % 34-70 Lymphs (test code = 736-9) 29.5 % 20-50 Monocytes (test code = 5905-5) 8.8 % 5-12 Eos (test code = 713-8) 3.4 % 0.7-5 Basos (test code = 706-2) 1.2 % 0.1-1.2 Immature Granulocytes (test code = 63419712) 0.4 % 0-0.5 Neutrophils (Absolute) (test code = 95990545) 4.62 K/uL 1.56-6.1 3 Lymphs (Absolute) (test code = 03205414) 2.41 K/uL 1.18-3.74 Monocytes(Absolute) (test code = 92808127) 0.72 K/uL 0.24-0.36 H Eos (Absolute) (test code = 74026914) 0.28 K/uL 0.04-0.36 Baso (Absolute) (test code = 96661600) 0.10 K/uL 0.01-0.08 H Immature Grans (Abs) (test code = 80461734) 0.03 K/uL 0-0.03 Absolute NRBC (test code = 48649403) 0.00 K/uL Lab Interpretation (test code = 46538-9) Abnormal [facility] HealthCreatine Kinase [id number] 21:45:00* Test Item Value Reference Range Interpretation Comments Creatine Kinase MB (test code = 67067-8) 1.90 0-5.0 [facility] Hospital[facility]onin [id number] 21:45:00* Test Item Value Reference Range Interpretation Comments Troponin I (test code = BQE9171) < 0.001 0-0.300 [facility] [id number] 21:39:00* Test Item Value Reference Range Interpretation Comments Sodium Level (test code = 2951-2) 140 136-145 [facility] HospitalPotassium [id number] 21:39:00* Test Item Value Reference Range Interpretation Comments Potassium Level (test code = 2823-3) 4.6 3.5-5.1 [facility] HospitalChloride [id number] 21:39:00* Test Item Value Reference Range Interpretation Comments Chloride Level (test code = 2075-0) 105 98-107 [facility] HospitalCarbon Dioxide [id number] 21:39:00* Test Item Value Reference Range Interpretation Comments Carbon Dioxide Level (test code = 2028-9) 25 22-29 [facility] HospitalAnion [id number] 21:39:00* Test Item Value Reference Range Interpretation Comments Anion Gap (test code = 75509-4) 14.6 8-16 [facility] Hospital[facility] Urea [id number] 21:39:00* Test Item Value Reference Range Interpretation Comments Blood Urea Nitrogen (test code = 3094-0) 29 7-26 H [facility] HospitalCreatinine2019-12-08 21:39:00* Test Item Value Reference Range Interpretation Comments Creatinine (test code = 2160-0) 0.95 0.57-1.11 [facility] HospitalBUN/Creatinine [id number] 21:39:00* Test Item Value Reference Range Interpretation Comments BUN/Creatinine Ratio (test code = 3097-3) 31 6-25 H [facility] HospitalEstimat Glomerular Filtration Rate 2019-01-28 21:39:00* Test Item Value Reference Range Interpretation Comments Estimat Glomerular Filtration Rate (test code = 253009661) > 60 >60 Ranges were taken from the National Kidney Disease Education Program and the [facility] literature.Reference ranges:60 or greater: Timgio14-58 ( for 3 consecutive months): Chronic kidney disease 15 or less: Kidney failureDriscoll Children's HospitalGlucose Xyrvp9547-26-83 21:39:00* Test Item Value Reference Range Interpretation Comments Glucose Level (test code = FEQ1453) 101 74-118 [facility] HospitalCalcium Yuipg7348-23-60 21:39:00* Test Item Value Reference Range Interpretation Comments Calcium Level (test code = 04479-4) 8.8 8.4-10.2 [facility] HospitalMagnesium Eobdz0873-09-32 21:39:00* Test Item Value Reference Range Interpretation Comments Magnesium Level (test code = 83312-8) 2.1 1.3-2.1 [facility] HospitalTotal Yjhhpwdjw1784-50-81 21:39:00* Test Item Value Reference Range Interpretation Comments Total Bilirubin (test code = 1975-2) 0.6 0.2-1.2 [facility] HospitalAspartate Amino Transf (AST/SGOT) 2019-01-28 21:39:00* Test Item Value Reference Range Interpretation Comments Aspartate Amino Transf (AST/SGOT) (test code = Aspartate Amino Transf (AST/SGOT)) 17 5-34 [facility] HospitalAlanine Aminotransferase (ALT/SGPT) 2019-01-28 21:39:00* Test Item Value Reference Range Interpretation Comments Alanine Aminotransferase (ALT/SGPT) (test code = 1742-6) 15 0-55 [facility] HospitalTotal Pdmtgjy3237-10-53 21:39:00* Test Item Value Reference Range Interpretation Comments Total Protein (test code = 2885-2) 6.4 6.5-8.1 L [facility] HospitalAlbumin2019-12-08 21:39:00* Test Item Value Reference Range Interpretation Comments Albumin (test code = 1751-7) 3.7 3.5-5.0 [facility] HospitalGlobulin2019-12-08 21:39:00* Test Item Value Reference Range Interpretation Comments Globulin (test code = 75330-1) 2.7 2.3-3.5 [facility] HospitalAlbumin/Globulin Qpgio2557-37-02 21:39:00 * Test Item Value Reference Range Interpretation Comments Albumin/Globulin Ratio (test code = 1759-0) 1.4 0.8-2.0 [facility] HospitalAlkaline Ygzfhlycoey5522-12-63 21:39:00* Test Item Value Reference Range Interpretation Comments Alkaline Phosphatase (test code = 6768-6) 52 40-150 [facility] HospitalCreatine Jjrqmj5270-42-13 21:39:00* Test Item Value Reference Range Interpretation Comments Creatine Kinase (test code = 2157-6) 90 29-168 [facility] HospitalWhite Blood Gfuin3846-72-74 21:24:00* Test Item Value Reference Range Interpretation Comments White Blood Count (test code = 6690-2) 9.25 4.8-10.8 [facility] HospitalRed Blood Kvpnr1824-64-18 21:24:00* Test Item Value Reference Range Interpretation Comments Red Blood Count (test code = 789-8) 3.99 3.6-5.1 [facility] HospitalHemoglobin2019-12-08 21:24:00* Test Item Value Reference Range Interpretation Comments Hemoglobin (test code = 68837-8) 12.4 12.0-16.0 [facility] HospitalHematocrit2019-12-08 21:24:00* Test Item Value Reference Range Interpretation Comments Hematocrit (test code = 4544-3) 39.0 34.2-44.1 [facility] HospitalMean Corpuscular Gozqqy9378-78-85 21:24:00* Test Item Value Reference Range Interpretation Comments Mean Corpuscular Volume (test code = 787-2) 97.7 81-99 [facility] HospitalMean Corpuscular Rfpgrecrug3164-37-11 21:24:00* Test Item Value Reference Range Interpretation Comments Mean Corpuscular Hemoglobin (test code = 785-6) 31.1 28-32 [facility] HospitalMean Corpuscular Hemoglobin Concent 2019-01-28 21:24:00* Test Item Value Reference Range Interpretation Comments Mean Corpuscular Hemoglobin Concent (test code = 786-4) 31.8 31-35 [facility] HospitalRed Cell Distribution Bfnxd2205-27-54 21:24:00* Test Item Value Reference Range Interpretation Comments Red Cell Distribution Width (test code = 22881-0) 13.2 11.7 -14.4 [facility] HospitalPlatelet Vgjin4492-64-64 21:24:00* Test Item Value Reference Range Interpretation Comments Platelet Count (test code = 777-3) 370 140-360 H [facility] HospitalNeutrophils (%) (Auto)2019-01-28 21:24:00 * Test Item Value Reference Range Interpretation Comments Neutrophils (%) (Auto) (test code = 45727-9) 51.0 38.7-80.0 [facility] HospitalLymphocytes (%) (Auto)2019-01-28 21:24:00 * Test Item Value Reference Range Interpretation Comments Lymphocytes (%) (Auto) (test code = 736-9) 31.2 18.0-39.1 [facility] HospitalMonocytes (%) (Auto)2019-01-28 21:24:00* Test Item Value Reference Range Interpretation Comments Monocytes (%) (Auto) (test code = 5905-5) 11.1 4.4-11.3 [facility] HospitalEosinophils (%) (Auto)2019-01-28 21:24:00 * Test Item Value Reference Range Interpretation Comments Eosinophils (%) (Auto) (test code = 713-8) 5.2 0.0-6.0 [facility] HospitalBasophils (%) (Auto)2019-01-28 21:24:00* Test Item Value Reference Range Interpretation Comments Basophils (%) (Auto) (test code = 706-2) 1.1 0.0-1.0 H [facility] HospitalIM GRANULOCYTES %2019-01-28 21:24:00* Test Item Value Reference Range Interpretation Comments IM GRANULOCYTES % (test code = IM GRANULOCYTES %) 0.4 0.0- 1.0 [facility] HospitalNeutrophils # (Auto)2019-01-28 21:24:00* Test Item Value Reference Range Interpretation Comments Neutrophils # (Auto) (test code = 751-8) 4.7 2.1-6.9 [facility] HospitalLymphocytes # (Auto)2019-01-28 21:24:00* Test Item Value Reference Range Interpretation Comments Lymphocytes # (Auto) (test code = 54282-6) 2.9 1.0-3.2 [facility] HospitalMonocytes # (Auto)2019-01-28 21:24:00* Test Item Value Reference Range Interpretation Comments Monocytes # (Auto) (test code = 742-7) 1.0 0.2-0.8 H [facility] HospitalEosinophils # (Auto)2019-01-28 21:24:00* Test Item Value Reference Range Interpretation Comments Eosinophils # (Auto) (test code = 711-2) 0.5 0.0-0.4 H [facility] HospitalBasophils # (Auto)2019-01-28 21:24:00* Test Item Value Reference Range Interpretation Comments Basophils # (Auto) (test code = 704-7) 0.1 0.0-0.1 [facility] HospitalAbsolute Immature Granulocyte (auto 2019-01-28 21:24:00* Test Item Value Reference Range Interpretation Comments Absolute Immature Granulocyte (auto (julia t code = Absolute Immature Granulocyte (auto) 0.04 0-0.1 [facility] HospitalBlood Dnsmbzg7935-84-81 16:13:00* Test Item Value Reference Range Interpretation Comments Blood Culture (test code = 80759782) NO GROWTH AFTER 5 DAYS, FINAL REPORT [facility] HospitalUrine PCU7775-86-29 17:46:00* Test Item Value Reference Range Interpretation Comments Urine WBC (test code = 5821-4) NONE 0-5 [facility] VSY2379-68-09 17:46:00* Test Item Value Reference Range Interpretation Comments Urine RBC (test code = 65408-3) NONE 0-5 [facility] HospitalUrine Kvpxifsk9427-83-09 17:46:00* Test Item Value Reference Range Interpretation Comments Urine Bacteria (test code = 17431-9) FEW NONE [facility] HospitalUrine Epithelial Lrird0525-74-32 17:46:00 * Test Item Value Reference Range Interpretation Comments Urine Epithelial Cells (test code = 20616-9) MODERATE NONE [facility] HospitalUrine Hyaline Vucui4998-09-65 17:46:00* Test Item Value Reference Range Interpretation Comments Urine Hyaline Casts (test code = 72268-9) 2-5 0-1 H [facility] HospitalUrine HOR4945-27-28 17:46:00* Test Item Value Reference Range Interpretation Comments Urine WBC (test code = 5821-4) NONE 0-5 [facility] HospitalUrine HVB4027-31-37 17:46:00* Test Item Value Reference Range Interpretation Comments Urine RBC (test code = 23444-9) NONE 0-5 [facility] HospitalUrine Pubetfky6675-56-25 17:46:00* Test Item Value Reference Range Interpretation Comments Urine Bacteria (test code = 73874-6) FEW NONE [facility] HospitalUrine Epithelial Lhidu1116-10-83 17:46:00 * Test Item Value Reference Range Interpretation Comments Urine Epithelial Cells (test code = 56231-0) MODERATE NONE [facility] HospitalUrine Hyaline Bjmng4129-56-43 17:46:00* Test Item Value Reference Range Interpretation Comments Urine Hyaline Casts (test code = 67265-8) 2-5 0-1 H [facility] HospitalUrine Tjcdv6815-07-89 17:42:00* Test Item Value Reference Range Interpretation Comments Urine Color (test code = 5778-6) YELLOW YELLOW [facility] HospitalUrine Mavdtme6199-90-51 17:42:00* Test Item Value Reference Range Interpretation Comments Urine Clarity (test code = 07501-0) CLEAR CLEAR [facility] Specific Oizvyba5963-93-85 17:42:00 * Test Item Value Reference Range Interpretation Comments Urine Specific Dawson (test code = 5811-5) 1.010 1.010-1.02 5 [facility] HospitalUrine nI5121-71-84 17:42:00* Test Item Value Reference Range Interpretation Comments Urine pH (test code = 65041-1) 5 5-7 [facility] HospitalUrine Leukocyte Xhcoapcq8738-71-62 17:42:00* Test Item Value Reference Range Interpretation Comments Urine Leukocyte Esterase (test code = 5799-2) NEGATIVE NEGATIVE [facility] HospitalUrine Edvapza0342-37-24 17:42:00* Test Item Value Reference Range Interpretation Comments Urine Nitrite (test code = 84858-7) NEGATIVE NEGATIVE [facility] HospitalUrine Edpfnrs4328-70-43 17:42:00* Test Item Value Reference Range Interpretation Comments Urine Protein (test code = 5804-0) NEGATIVE NEGATIVE [facility] HospitalUrine Glucose (UA)2018-06-22 17:42:00* Test Item Value Reference Range Interpretation Comments Urine Glucose (UA) (test code = 2349-9) NEGATIVE NEGATIVE [facility] HospitalUrine Qgrxiqu2671-07-66 17:42:00* Test Item Value Reference Range Interpretation Comments Urine Ketones (test code = 77639-2) NEGATIVE NEGATIVE [facility] HospitalUrine Alrcjcqbdeps2780-96-46 17:42:00* Test Item Value Reference Range Interpretation Comments Urine Urobilinogen (test code = 51491-5) 0.2 0.2-1 [facility] HospitalUrine Gfkoorinf9073-07-48 17:42:00* Test Item Value Reference Range Interpretation Comments Urine Bilirubin (test code = 1978-6) NEGATIVE NEGATIVE [facility] Rvlzu1313-44-53 17:42:00* Test Item Value Reference Range Interpretation Comments Urine Blood (test code = 86079-9) NEGATIVE NEGATIVE [facility] HospitalUrine Cpzzp5673-51-83 17:42:00* Test Item Value Reference Range Interpretation Comments Urine Color (test code = 5778-6) YELLOW YELLOW [facility] Tabqeyq3163-84-73 17:42:00* Test Item Value Reference Range Interpretation Comments Urine Clarity (test code = 70855-4) CLEAR CLEAR [facility] HospitalUrine Specific Dbvttka1175-41-28 17:42:00 * Test Item Value Reference Range Interpretation Comments Urine Specific Dawson (test code = 5811-5) 1.010 1.010-1.02 5 [facility] HospitalUrine eX6287-02-94 17:42:00* Test Item Value Reference Range Interpretation Comments Urine pH (test code = 77470-5) 5 5-7 [facility] HospitalU[facility] Leukocyte Jyaxxuul4119-87-99 17:42:00* Test Item Value Reference Range Interpretation Comments Urine Leukocyte Esterase (test code = 5799-2) NEGATIVE NEGATIVE [facility] HospitalUrine Oorsefa2875-42-02 17:42:00* Test Item Value Reference Range Interpretation Comments Urine Nitrite (test code = 98321-1) NEGATIVE NEGATIVE [facility] HospitalUrine Xdxacxd9675-67-31 17:42:00* Test Item Value Reference Range Interpretation Comments Urine Protein (test code = 5804-0) NEGATIVE NEGATIVE [facility] HospitalUrine Glucose (UA)2018-06-22 17:42:00* Test Item Value Reference Range Interpretation Comments Urine Glucose (UA) (test code = 2349-9) NEGATIVE NEGATIVE [facility] HospitalUrine Esthmkf0982-32-63 17:42:00* Test Item Value Reference Range Interpretation Comments Urine Ketones (test code = 52207-2) NEGATIVE NEGATIVE [facility] HospitalUrine Ykrdwavlixvr6684-70-77 17:42:00* Test Item Value Reference Range Interpretation Comments Urine Urobilinogen (test code = 47916-4) 0.2 0.2-1 [facility] HospitalUrine Owpujszjg5751-01-40 17:42:00* Test Item Value Reference Range Interpretation Comments Urine Bilirubin (test code = 1978-6) NEGATIVE NEGATIVE [facility] HospitalUrine Tsbcc8991-04-88 17:42:00* Test Item Value Reference Range Interpretation Comments Urine Blood (test code = 85652-4) NEGATIVE NEGATIVE [facility] HospitalCHEST 2 AIFTQ4215-04-79 17:11:00 [facility] [address] [place] [address] Patient Name: TONI BARAHONA MR #: [id number] : 1970 Age/Sex: 48/F Req #: [id number] Adm Physician: Ordered by: SHANI JORDAN MD Report #: [id number] Location: ER Room/Bed: Procedure: [id number] DX/ CHEST 2 VIEWS Exam Date: Exam Time: REPORT STATUS: Signed EXAMINATION: CHEST 2 EWS INDICATION: Sepsis. COMPARISON: None FINDINGS: T UBES and LINES: None. LUNGS: Lungs are well inflated. Minimal patchy left basilar opacity, likely atelectasis. There is no evidence of pneumonia or pul monary edema. PLEURA: No pleural effusion or pneumothorax. HEART AND MEDIASTINUM: The cardiomediastinal silhouette is unremarkable. BONES AND SOFT TISSUES: No acute osseous abnormality. UPPER ABDOMEN: No free air under the diaphragm. Cholecystectomy clips project over the right upper quadr ant. IMPRESSION: No acute radiographic abnormality. Signed by: Dr. Shan Mcgarry MD on 06/22/2018 5:16 PM Dictated By: SHAN MCGARRY MD Electr onically Signed By: SHAN MCGARRY MD on 06/22/181715 Transcribed By: KYLE on 0 06/22/181715 COPY TO: SHANI JORDAN MD Sodium Wdzsu9417-39-29 16:43:00* Test Item Value Reference Range Interpretation Comments Sodium Level (test code = 2951-2) 135 136-145 L [facility] HospitalPotassium Nrdwn4306-68-38 16:43:00* Test Item Value Reference Range Interpretation Comments Potassium Level (test code = 2823-3) 3.9 3.5-5.1 [facility] HospitalChloride Nwzlh7280-58-35 16:43:00* Test Item Value Reference Range Interpretation Comments Chloride Level (test code = 2075-0) 102 98-107 [facility] HospitalCarbon Dioxide Xgcfm0115-34-51 16:43:00* Test Item Value Reference Range Interpretation Comments Carbon Dioxide Level (test code = 2028-9) 23 22-29 [facility] HospitalAnion Wmd6707-97-35 16:43:00* Test Item Value Reference Range Interpretation Comments Anion Gap (test code = 10262-2) 13.9 8-16 [facility] HospitalBlood Urea Ngjejxha1471-33-04 16:43:00* Test Item Value Reference Range Interpretation Comments Blood Urea Nitrogen (test code = 3094-0) 18 7-26 [facility] HospitalCreatinine2019-05-02 16:43:00* Test Item Value Reference Range Interpretation Comments Creatinine (test code = 2160-0) 0.91 0.57-1.11 [facility] HospitalBUN/Creatinine Bbiiz7266-01-10 16:43:00* Test Item Value Reference Range Interpretation Comments BUN/Creatinine Ratio (test code = 3097-3) 20 6-25 [facility] HospitalEstimat Glomerular Filtration Rate 2018-06-22 16:43:00* Test Item Value Reference Range Interpretation Comments Estimat Glomerular Filtration Rate (test code = 006281276) > 60 >60 Ranges were taken from the National Kidney Disease Education Program and the [facility] literature.Reference ranges:60 or greater: Plyzoy31-60 ( for 3 consecutive months): Chronic kidney disease 15 or less: Kidney failureDriscoll Children's HospitalGlucose Ydzag5661-43-57 16:43:00* Test Item Value Reference Range Interpretation Comments Glucose Level (test code = KBR2425) 109 74-118 [facility] HospitalCalcium Jdffb8999-42-06 16:43:00* Test Item Value Reference Range Interpretation Comments Calcium Level (test code = 14279-3) 9.6 8.4-10.2 [facility] HospitalTotal Jvaceuree7899-65-34 16:43:00* Test Item Value Reference Range Interpretation Comments Total Bilirubin (test code = 1975-2) 0.8 0.2-1.2 [facility] HospitalAspartate Amino Transf (AST/SGOT) 2018-06-22 16:43:00* Test Item Value Reference Range Interpretation Comments Aspartate Amino Transf (AST/SGOT) (test code = Aspartate Amino Transf (AST/SGOT)) 18 5-34 [facility] HospitalAlanine Aminotransferase (ALT/SGPT) 2018-06-22 16:43:00* Test Item Value Reference Range Interpretation Comments Alanine Aminotransferase (ALT/SGPT) (test code = 1742-6) 24 0-55 [facility] HospitalTotal Wdqioyh9925-04-22 16:43:00* Test Item Value Reference Range Interpretation Comments Total Protein (test code = 2885-2) 6.9 6.5-8.1 [facility] HospitalAlbumin2019-05-02 16:43:00* Test Item Value Reference Range Interpretation Comments Albumin (test code = 1751-7) 3.9 3.5-5.0 [facility] HospitalGlobulin2019-05-02 16:43:00* Test Item Value Reference Range Interpretation Comments Globulin (test code = 65572-6) 3.0 2.3-3.5 [facility] HospitalAlbumin/Globulin Miisu4141-52-71 16:43:00 * Test Item Value Reference Range Interpretation Comments Albumin/Globulin Ratio (test code = 1759-0) 1.3 0.8-2.0 [facility] HospitalAlkaline Vdxxpetlujg1639-59-26 16:43:00* Test Item Value Reference Range Interpretation Comments Alkaline Phosphatase (test code = 6768-6) 56 40-150 [facility] Qual 2018-06-22 16:40:00* Test Item Value Reference Range Interpretation Comments Human Chorionic Gonadotropin, Qual (test code = 2118-8) NEGATIVE NEGATIVE [facility] Chorionic Gonadotropin, Qual 2018-06-22 16:40:00* Test Item Value Reference Range Interpretation Comments Human Chorionic Gonadotropin, Qual (test code = 2118-8) NEGATIVE NEGATIVE [facility] HospitalLactic Acid Ambop6505-16-06 16:37:00* Test Item Value Reference Range Interpretation Comments Lactic Acid Level (test code = Lactic Acid Level) 12.4 4.5- 19.8 [facility] HospitalLactic Acid Ygpyh9731-00-73 16:37:00* Test Item Value Reference Range Interpretation Comments Lactic Acid Level (test code = Lactic Acid Level) 12.4 4.5- 19.8 [facility] HospitalInfluenza Virus Types A,B Antigen 2018-06-22 16:35:00* Test Item Value Reference Range Interpretation Comments Influenza Virus Types A,B Antigen (test code = 49192-0) NEGATIVE NEGATIVE [facility] HospitalInfluenza Virus Types A,B Antigen 2018-06-22 16:35:00* Test Item Value Reference Range Interpretation Comments Influenza Virus Types A,B Antigen (test code = 08476-1) NEGATIVE NEGATIVE [facility] HospitalWhite Blood Frujn5593-98-57 16:24:00* Test Item Value Reference Range Interpretation Comments White Blood Count (test code = 6690-2) 11.84 4.8-10.8 H [facility] HospitalRed Blood Sfqwv0241-80-58 16:24:00* Test Item Value Reference Range Interpretation Comments Red Blood Count (test code = 789-8) 4.09 3.6-5.1 [facility] HospitalHemoglobin2019-05-02 16:24:00* Test Item Value Reference Range Interpretation Comments Hemoglobin (test code = 84154-2) 13.0 12.0-16.0 [facility] HospitalHematocrit2019-05-02 16:24:00* Test Item Value Reference Range Interpretation Comments Hematocrit (test code = 4544-3) 37.9 34.2-44.1 [facility] HospitalMean Corpuscular Hbqnny6545-34-54 16:24:00* Test Item Value Reference Range Interpretation Comments Mean Corpuscular Volume (test code = 787-2) 92.7 81-99 [facility] HospitalMean Corpuscular Sxzdhzyzgz9209-99-45 16:24:00* Test Item Value Reference Range Interpretation Comments Mean Corpuscular Hemoglobin (test code = 785-6) 31.8 28-32 [facility] Corp[facility] Hemoglobin Concent 2018-06-22 16:24:00* Test Item Value Reference Range Interpretation Comments Mean Corpuscular Hemoglobin Concent (test code = 786-4) 34.3 31-35 [facility] HospitalRed Cell Distribution Ijxii2526-78-46 16:24:00* Test Item Value Reference Range Interpretation Comments Red Cell Distribution Width (test code = 49947-2) 13.6 11.7 -14.4 [facility] HospitalPlatelet Ejxxj1338-71-40 16:24:00* Test Item Value Reference Range Interpretation Comments Platelet Count (test code = 777-3) 461 140-360 H [facility] HospitalNeutrophils (%) (Auto)2018-06-22 16:24:00 * Test Item Value Reference Range Interpretation Comments Neutrophils (%) (Auto) (test code = 63866-2) 57.2 38.7-80.0 [facility] HospitalLymphocytes (%) (Auto)2018-06-22 16:24:00 * Test Item Value Reference Range Interpretation Comments Lymphocytes (%) (Auto) (test code = 736-9) 31.2 18.0-39.1 [facility] HospitalMonocytes (%) (Auto)2018-06-22 16:24:00* Test Item Value Reference Range Interpretation Comments Monocytes (%) (Auto) (test code = 5905-5) 8.4 4.4-11.3 [facility] HospitalEosinophils (%) (Auto)2018-06-22 16:24:00 * Test Item Value Reference Range Interpretation Comments Eosinophils (%) (Auto) (test code = 713-8) 1.9 0.0-6.0 [facility] HospitalBasophils (%) (Auto)2018-06-22 16:24:00* Test Item Value Reference Range Interpretation Comments Basophils (%) (Auto) (test code = 706-2) 0.8 0.0-1.0 [facility] HospitalIM GRANULOCYTES %2018-06-22 16:24:00* Test Item Value Reference Range Interpretation Comments IM GRANULOCYTES % (test code = IM GRANULOCYTES %) 0.5 0.0- 1.0 [facility] HospitalNeutrophils # (Auto)2018-06-22 16:24:00* Test Item Value Reference Range Interpretation Comments Neutrophils # (Auto) (test code = 751-8) 6.8 2.1-6.9 [facility] HospitalLymphocytes # (Auto)2018-06-22 16:24:00* Test Item Value Reference Range Interpretation Comments Lymphocytes # (Auto) (test code = 69787-0) 3.7 1.0-3.2 H [facility] HospitalMonocytes # (Auto)2018-06-22 16:24:00* Test Item Value Reference Range Interpretation Comments Monocytes # (Auto) (test code = 742-7) 1.0 0.2-0.8 H [facility] HospitalEosinophils # (Auto)2018-06-22 16:24:00* Test Item Value Reference Range Interpretation Comments Eosinophils # (Auto) (test code = 711-2) 0.2 0.0-0.4 [facility] HospitalBasophils # (Auto)2018-06-22 16:24:00* Test Item Value Reference Range Interpretation Comments Basophils # (Auto) (test code = 704-7) 0.1 0.0-0.1 [facility] HospitalAbsolute Immature Granulocyte (auto 2018-06-22 16:24:00* Test Item Value Reference Range Interpretation Comments Absolute Immature Granulocyte (auto (julia t code = Absolute Immature Granulocyte (auto) 0.06 0-0.1 [facility] Qfpxp1956-51-41 15:06:00* Test Item Value Reference Range Interpretation Comments Sodium Level (test code = 2951-2) 135 136-145 L [facility] HospitalPotassium Tfgoa0646-89-82 15:06:00* Test Item Value Reference Range Interpretation Comments Potassium Level (test code = 2823-3) 3.7 3.5-5.1 [facility] HospitalChloride Lurbt6509-74-49 15:06:00* Test Item Value Reference Range Interpretation Comments Chloride Level (test code = 2075-0) 103 98-107 [facility] HospitalCarbon Dioxide Jvujr8798-96-03 15:06:00* Test Item Value Reference Range Interpretation Comments Carbon Dioxide Level (test code = 2028-9) 22 22-29 [facility] HospitalAnion Ckt4428-88-81 15:06:00* Test Item Value Reference Range Interpretation Comments Anion Gap (test code = 57300-3) 13.7 8-16 [facility] HospitalBlood Urea Ddhfrxex5822-57-93 15:06:00* Test Item Value Reference Range Interpretation Comments Blood Urea Nitrogen (test code = 3094-0) 24 7-26 [facility] HospitalCreatinine2018-10-30 15:06:00* Test Item Value Reference Range Interpretation Comments Creatinine (test code = 2160-0) 0.98 0.57-1.11 [facility] HospitalBUN/Creatinine Xzpde8190-93-18 15:06:00* Test Item Value Reference Range Interpretation Comments BUN/Creatinine Ratio (test code = 3097-3) 24 6-25 [facility] HospitalEstimat Glomerular Filtration Rate 2017-12-20 15:06:00* Test Item Value Reference Range Interpretation Comments Estimat Glomerular Filtration Rate (test code = 984261012) > 60 >60 Ranges were taken from the National Kidney Disease Education Program and the [facility] literature.Reference ranges:60 or greater: [id number] ( for 3 consecutive months): Chronic kidney disease 15 or less: Kidney failureD[facility]coll Children's HospitalGlucose [id number] 15:06:00* Test Item Value Reference Range Interpretation Comments Glucose Level (test code = ZIL3048) 96 74-118 [facility] HospitalCalcium [id number] 15:06:00* Test Item Value Reference Range Interpretation Comments Calcium Level (test code = 50534-4) 9.2 8.4-10.2 [facility] HospitalTotal [id number] 15:06:00* Test Item Value Reference Range Interpretation Comments Total Bilirubin (test code = 1975-2) 0.9 0.2-1.2 [facility] HospitalAspartate Amino Transf (AST/SGOT) 2017-12-20 15:06:00* Test Item Value Reference Range Interpretation Comments Aspartate Amino Transf (AST/SGOT) (test code = Aspartate Amino Transf (AST/SGOT)) 14 5-34 [facility] HospitalAlanine Aminotransferase (ALT/SGPT) 2017-12-20 15:06:00* Test Item Value Reference Range Interpretation Comments Alanine Aminotransferase (ALT/SGPT) (test code = 1742-6) 10 0-55 [facility] HospitalTotal [id number] 15:06:00* Test Item Value Reference Range Interpretation Comments Total Protein (test code = 2885-2) 7.4 6.5-8.1 [facility] HospitalAlbumin2018-10-30 15:06:00* Test Item Value Reference Range Interpretation Comments Albumin (test code = 1751-7) 4.0 3.5-5.0 [facility] HospitalGlobulin2018-10-30 15:06:00* Test Item Value Reference Range Interpretation Comments Globulin (test code = 65832-1) 3.4 2.3-3.5 [facility] HospitalAlbumin/Globulin [id number] 15:06:00 * Test Item Value Reference Range Interpretation Comments Albumin/Globulin Ratio (test code = 1759-0) 1.2 0.8-2.0 [facility] HospitalAlkaline [id number] 15:06:00* Test Item Value Reference Range Interpretation Comments Alkaline Phosphatase (test code = 6768-6) 51 40-150 [facility] HospitalProthrombin [id number] 15:05:00* Test Item Value Reference Range Interpretation Comments Prothrombin Time (test code = 5902-2) 12.3 11.9-14.5 [facility] HospitalProthromb Time International Ratio 2017-12-20 15:05:00* Test Item Value Reference Range Interpretation Comments Prothromb Time International Ratio (test code = 6301-6) 0.84 Oral Anticoagulant Therapy INR Values:1. Low Intensity Therapy 1.5 - 2.02 . Moderate Intensity Therapy 2.0 - 3.03. High Intensity Therapy(1) 2.5 - 3. 54. High Intensity Therapy(2) 3.0 - 4.05. Panic Value INR > 5.0 [facility] HospitalProthrombin [id number] 15:05:00* Test Item Value Reference Range Interpretation Comments Prothrombin Time (test code = 5902-2) 12.3 11.9-14.5 [facility] HospitalProthromb Time International Ratio 2017-12-20 15:05:00* Test Item Value Reference Range Interpretation Comments Prothromb Time International Ratio (test code = 6301-6) 0.84 Oral Anticoagulant Therapy INR Values:1. Low Intensity Therapy 1.5 - 2.02 . Moderate Intensity Therapy 2.0 - 3.03. High Intensity Therapy(1) 2.5 - 3. 54. High Intensity Therapy(2) 3.0 - 4.05. Panic Value INR > 5.0 [facility] HospitalUrine [id number] 14:55:00* Test Item Value Reference Range Interpretation Comments Urine Test (test code = 2106-3) NEGATIVE NEGATIVE [facility] HospitalUrine [id number] 14:55:00* Test Item Value Reference Range Interpretation Comments Urine Test (test code = 2106-3) NEGATIVE NEGATIVE [facility] HospitalWhite Blood [id number] 14:47:00* Test Item Value Reference Range Interpretation Comments White Blood Count (test code = 6690-2) 13.35 4.8-10.8 H [facility] HospitalRed Blood [id number] 14:47:00* Test Item Value Reference Range Interpretation Comments Red Blood Count (test code = 789-8) 4.21 3.6-5.1 [facility] HospitalHemoglobin2018-10-30 14:47:00* Test Item Value Reference Range Interpretation Comments Hemoglobin (test code = 40423-1) 13.4 12.0-16.0 [facility] HospitalHematocrit2018-10-30 14:47:00* Test Item Value Reference Range Interpretation Comments Hematocrit (test code = 4544-3) 41.4 34.2-44.1 [facility] HospitalMean Corpuscular [id number] 14:47:00* Test Item Value Reference Range Interpretation Comments Mean Corpuscular Volume (test code = 787-2) 98.3 81-99 [facility] HospitalMean Corpuscular [id number] 14:47:00* Test Item Value Reference Range Interpretation Comments Mean Corpuscular Hemoglobin (test code = 785-6) 31.8 28-32 [facility] HospitalMean Corpuscular Hemoglobin Concent 2017-12-20 14:47:00* Test Item Value Reference Range Interpretation Comments Mean Corpuscular Hemoglobin Concent (test code = 786-4) 32.4 31-35 [facility] HospitalRed Cell Distribution [id number] 14:47:00* Test Item Value Reference Range Interpretation Comments Red Cell Distribution Width (test code = 09692-0) 13.0 11.7 -14.4 [facility] HospitalPlatelet [id number] 14:47:00* Test Item Value Reference Range Interpretation Comments Platelet Count (test code = 777-3) 348 140-360 [facility] HospitalNeutrophils (%) (Auto)2017-12-20 14:47:00 * Test Item Value Reference Range Interpretation Comments Neutrophils (%) (Auto) (test code = 68577-2) 69.7 38.7-80.0 [facility] HospitalLymphocytes (%) (Auto)2017-12-20 14:47:00 * Test Item Value Reference Range Interpretation Comments Lymphocytes (%) (Auto) (test code = 736-9) 18.3 18.0-39.1 [facility] HospitalMonocytes (%) (Auto)2017-12-20 14:47:00* Test Item Value Reference Range Interpretation Comments Monocytes (%) (Auto) (test code = 5905-5) 9.1 4.4-11.3 [facility] HospitalEosinophils (%) (Auto)2017-12-20 14:47:00 * Test Item Value Reference Range Interpretation Comments Eosinophils (%) (Auto) (test code = 713-8) 1.6 0.0-6.0 [facility] HospitalBasophils (%) (Auto)2017-12-20 14:47:00* Test Item Value Reference Range Interpretation Comments Basophils (%) (Auto) (test code = 706-2) 0.9 0.0-1.0 [facility] HospitalIM GRANULOCYTES %2017-12-20 14:47:00* Test Item Value Reference Range Interpretation Comments IM GRANULOCYTES % (test code = IM GRANULOCYTES %) 0.4 0.0- 1.0 [facility] HospitalNeutrophils # (Auto)2017-12-20 14:47:00* Test Item Value Reference Range Interpretation Comments Neutrophils # (Auto) (test code = 751-8) 9.3 2.1-6.9 H [facility] HospitalLymphocytes # (Auto)2017-12-20 14:47:00* Test Item Value Reference Range Interpretation Comments Lymphocytes # (Auto) (test code = 43618-4) 2.4 1.0-3.2 [facility] HospitalMonocytes # (Auto)2017-12-20 14:47:00* Test Item Value Reference Range Interpretation Comments Monocytes # (Auto) (test code = 742-7) 1.2 0.2-0.8 H [facility] HospitalEosinophils # (Auto)2017-12-20 14:47:00* Test Item Value Reference Range Interpretation Comments Eosinophils # (Auto) (test code = 711-2) 0.2 0.0-0.4 [facility] HospitalBasophils # (Auto)2017-12-20 14:47:00* Test Item Value Reference Range Interpretation Comments Basophils # (Auto) (test code = 704-7) 0.1 0.0-0.1 [facility] HospitalAbsolute Immature Granulocyte (auto 2017-12-20 14:47:00* Test Item Value Reference Range Interpretation Comments Absolute Immature Granulocyte (auto (julia t code = Absolute Immature Granulocyte (auto) 0.05 0-0.1 [facility]
[2019-10-20 13:55] LABS: INR 0.82; PROTHROMBIN TIME 11.7 seconds (11.9-14.5)
[2019-10-20 14:06] LABS: ALANINE AMINOTRANSFERASE 13 IU/L (0-55); ALBUMIN 3.9 g/dL (3.5-5.0); ALBUMIN/GLOBULIN RATIO 1.3 (0.8-2.0); ALKALINE PHOSPHATASE 57 IU/L (40-150); BLOOD UREA NITROGEN 18 mg/dL (7-26); BUN/CREATININE RATIO 20 (6-25); CALCIUM 8.7 mg/dL (8.4-10.2); CARBON DIOXIDE 20 mmol/L (22-29); CHLORIDE 104 mmol/L (98-107); CREATINE KINASE 85 IU/L (29-168); CREATININE, SERUM 0.88 mg/dL (0.57-1.11); EST GLOMERULAR FILTRATION RATE > 60 ML/MIN (60-); GLUCOSE 87 mg/dL (74-118); SODIUM 138 mmol/L (136-145)
[2019-10-20 14:49] LABS: CLARITY,URINE CLEAR (CLEAR); COLOR,URINE YELLOW (YELLOW)
[2019-10-20 14:50] LABS: BILIRUBIN,URINE NEGATIVE (NEGATIVE); KETONES,URINE NEGATIVE (NEGATIVE); LEUKOCYTE ESTERASE ,URINE NEGATIVE (NEGATIVE); NITRITE,URINE NEGATIVE (NEGATIVE); PROTEIN,URINE DIPSTICK NEGATIVE (NEGATIVE); URINE UROBILINOGEN 0.2 mg/dL (0.2 - 1)
--- NOTE | 2019-10-20 14:50 | Emergency Department Note ---
History of Present Illnes History of Present Illness Chief Complaint: General Medicine Complaints History of Present Illness This is a 49 year old female PATIENT IN FROM HOME WITH COMPLAINTS OF TINGLING AND NUMBNESS IN HER RIGHT ARM AND HAND RING FINGER AND THUMB X 4 DAYS. PATIENT DENIES PAIN. STATES THAT SHE IS ALSO HAVING DIARRHEA X 2 DAYS, PATIENT ALERT AND ORIENTED, RESP EVEN AND NONLABORED, HYPERVERBAL IN TRIAGE. Historian: Patient Arrival Mode: Car Computer Animator Required: No Onset (how long ago): day(s) (4) Location: RIGHT ARM Quality: TINGLING Radiation: Reports non-radiation Severity: moderate Onset quality: gradual Timing of current episode: constant Progression: unchanged Chronicity: new Context: Denies recent illness Relieving factors: none Exacerbating factors: none Associated symptoms: Reports denies other symptoms Past Medical/Family History Physician Review I have reviewed the patient's past medical and family history. Any updates have been documented here. Past Medical History Recent Fever: No Clinical Suspicion of Infectio: No New/Unexplained Change in Ment: No Past Medical History: Hypertension, Asthma, GERD Other Medical History: GERD Past Surgical History: Cholecysctectomy, Bariatric Surgery Other Surgery: ovarian cyst in 2004 Social History Smoking Cessation: Never Smoker Counseling Performed: No Alcohol Use: Occasional Any Illegal Drug Use: No TB Exposure/Symptoms: No Physically hurt or threatened: No Family History Family history of heart diseas: No Other Last Tetanus: UTD Any Pre-Existing Lines (PICC,: No Review of Systems Review of Systems Constitutional: Reports no symptoms EENTM: Reports no symptoms Cardiovascular: Reports no symptoms Respiratory: Reports no symptoms Gastrointestinal: Reports no symptoms Genitourinary: Reports as per HPI, Reports other (DIARRHEA) Musculoskeletal: Reports no symptoms Integumentary: Reports no symptoms Neurological: Reports as per HPI, Reports tingling; Denies headache, Denies weakness Psychological: Reports no symptoms Endocrine: Reports no symptoms Hematological/Lymphatic: Reports no symptoms Physical Exam Related Data Allergies: Coded Allergies: No Known Allergies (Unverified , 03/20/15) Triage Vital Signs Vital Signs Date Time Temp Pulse Resp B/P (MAP) Pulse Ox O2 Delivery O2 Flow Rate FiO2 10/20/19 12:49 97.9 79 18 126/98 100 Room Air Vital signs reviewed: Yes Physical Exam CONSTITUTIONAL Constitutional: Present well-developed, Present well-nourished HENT HENT: Present normocephalic, Present atraumatic, Present oropharynx clear/moist, Present nose normal HENT L/R: Present left ext ear normal, Present right ext ear normal EYES Eyes: Reports PERRL, Reports conjunctivae normal NECK Neck: Present ROM normal PULMONARY Pulmonary: Present effort normal, Present breath sounds normal CARDIOVASCULAR Cardiovascular: Present regular rhythm, Present heart sounds normal, Present capillary refill normal, Present normal rate GASTROINTESTINAL Abdominal: Present soft, Present nontender, Present bowel sounds normal GENITOURINARY Genitourinary: Present exam deferred SKIN Skin: Present warm, Present dry MUSCULOSKELETAL Musculoskeletal: Present ROM normal NEUROLOGICAL Neurological: Present alert, Present oriented x 3, Present no gross motor or sensory deficits, Present sensory deficit (PT HAS DECREASED TOUCH SENSATION ONLY IN RIGHT THUMB AND RIGHT RING FINGER); Absent cranial nerve deficit, Absent abnormal DTRs, Absent abnormal gait, Absent weakness PSYCHOLOGICAL Psychological: Present mood/affect normal, Present judgement normal Results Laboratory Result Diagram: 10/20/19 1316 10/20/19 1316 Laboratory Laboratory Tests Test 10/20/19 14:21 10/20/19 13:16 White Blood Count 9.64 x10e3/uL (4.8-10.8) Red Blood Count 4.10 x10e6/uL (3.6-5.1) Hemoglobin 12.3 g/dL (12.0-16.0) Hematocrit 39.3 % (34.2-44.1) Mean Corpuscular Volume 95.9 fL (81-99) Mean Corpuscular Hemoglobin 30.0 pg (28-32) Mean Corpuscular Hemoglobin Concent 31.3 g/dL (31-35) Red Cell Distribution Width 13.2 % (11.7-14.4) Platelet Count 386 x10e3/uL (140-360) Neutrophils (%) (Auto) 69.1 % (38.7-80.0) Lymphocytes (%) (Auto) 17.9 % (18.0-39.1) Monocytes (%) (Auto) 9.4 % (4.4-11.3) Eosinophils (%) (Auto) 2.4 % (0.0-6.0) Basophils (%) (Auto) 1.0 % (0.0-1.0) Neutrophils # (Auto) 6.7 (2.1-6.9) Lymphocytes # (Auto) 1.7 (1.0-3.2) Monocytes # (Auto) 0.9 (0.2-0.8) Eosinophils # (Auto) 0.2 (0.0-0.4) Basophils # (Auto) 0.1 (0.0-0.1) Absolute Immature Granulocyte (auto 0.02 x10e3/uL (0-0.1) Prothrombin Time 11.7 seconds (11.9-14.5) Prothromb Time International Ratio 0.82 Activated Partial Thromboplast Time 23.0 seconds (23.8-35.5) Sodium Level 138 mmol/L (136-145) Potassium Level 4.0 mmol/L (3.5-5.1) Chloride Level 104 mmol/L (98-107) Carbon Dioxide Level 20 mmol/L (22-29) Anion Gap 18.0 mmol/L (8-16) Blood Urea Nitrogen 18 mg/dL (7-26) Creatinine 0.88 mg/dL (0.57-1.11) Estimat Glomerular Filtration Rate > 60 ML/MIN (60-) BUN/Creatinine Ratio 20 (6-25) Glucose Level 87 mg/dL (74-118) Calcium Level 8.7 mg/dL (8.4-10.2) Magnesium Level 2.0 MG/DL (1.3-2.1) Aspartate Amino Transf (AST/SGOT) 17 IU/L (5-34) Alanine Aminotransferase (ALT/SGPT) 13 IU/L (0-55) Alkaline Phosphatase 57 IU/L (40-150) Creatine Kinase 85 IU/L (29-168) Total Protein 6.9 g/dL (6.5-8.1) Albumin 3.9 g/dL (3.5-5.0) Globulin 3.0 g/dL (2.3-3.5) Albumin/Globulin Ratio 1.3 (0.8-2.0) Lab results reviewed: Yes Imaging Imaging results reviewed: Yes Procedures 12 Lead ECG Interpretation ECG Interpretation : ECG: ECG 1 Computer Animator: Interpreted by ED physician Date: Oct 20, 2019 Time: 13:01 Rhythm: sinus rhythm Rate: normal (68) QRS axis: normal ST segments normal: Yes T waves normal: Yes Clinical Impression: normal ECG Assessment & Plan Medical Decision Making MDM NON-PHYSIOLOGIC TINGLING IN RIGHT THUMB AND 4TH FINGER - WOKE UP 4 DAYS AGO WITH THIS, ALSO W/ DIARRHEA X 2 DAYS - CHECK CBC, CHEM, CARDIACS, TSH, UA, ECG, CT BRAIN - R/O ELECTROLYTE ABNL, DEHYDRATION, RENAL INSUFF, CEREBRAL BLEED/MASS, HYPOTHYROID Reassessment Reassessment IMPROVED WITH IVF'S, DC WITH [facility] FOR ABD CRAMPS/DIARRHEA, F/U PCP AND NEURO DR KUMARI Assessment & Plan Final Impression: (1) Paresthesias (2) Diarrhea Depart Disposition: HOME, SELF-CARE Last Vital Signs Date Time Temp Pulse Resp B/P (MAP) Pulse Ox O2 Delivery O2 Flow Rate FiO2 10/20/19 14:19 98.0 60 17 132/87 100 Room Air Home Meds Active Scripts Gabapentin (NEURONTIN) 300 Mg Capsule, 300 MG PO TID PRN for Mild Pain (1-3) or Fever>100.8, #30 CAP Prov:NOE RYAN AIX ARCHITECT 01/28/19 Reported Medications Cholecalciferol (Vitamin D3) (VITAMIN D) 1,000 Unit Tablet, 5000 UNIT PO DAILY, #30 TAB 12/20/17 Vitamin E Acetate (VITAMIN E) 400 Unit Capsule, 400 UNITS PO UD, #30 CAP ONCE A WEEK 12/20/17 [Tumeric] No Conflict Check, 1 TAB PO DAILY 12/20/17 Multivitamin (MULTIVITAMINS) 1 Each Capsule, 1 CAP PO DAILY 12/20/17 Amlodipine Besylate (AMLODIPINE BESYLATE) 10 Mg Tablet, 10 MG PO DAILY, #30 TAB 12/20/17 Fluoxetine Hcl (FLUOXETINE HCL) 20 Mg Capsule, 20 MG PO DAILY, #30 CAP 12/20/17 Topiramate (TOPAMAX) 25 Mg Tablet, 10 MG PO DAILY 12/20/17 Furosemide (LASIX) 40 Mg Tablet, 40 MG PO DAILY, #30 TAB 12/20/17 Lisinopril (LISINOPRIL) 10 Mg Tablet, 10 MG PO DAILY, #30 TAB 12/20/17 Montelukast Sodium (SINGULAIR) 10 Mg Tablet, 10 MG PO HS PRN for ALLERGY 11/19/13 Albuterol Sulfate (ALBUTEROL SULFATE) 0.63 Mg/3 Ml Vial.neb, 0.63 MG PO prn 08/12/12 Medications in the ED Pantoprazole Sodium 40 mg ONCE STAT IV Last administered on 10/20/19at 14:38; Admin Dose 40 MG; Start 10/20/19 at 13:04; Stop 10/20/19 at 13:15; Status DC Sodium Chloride 1,000 ml @ 0 mls/hr Q0M STAT IV Last administered on 10/20/19at 14:38; Admin Dose 999 MLS/HR; Start 10/20/19 at 13:04; Stop 10/20/19 at 13:06; Status DC SHANI JORDAN MD Oct 20, 2019 14:50
[2019-10-20 15:00] LABS: BACTERIA,URINE RARE /HPF; EPITHELIAL CELLS,URINE FEW /LPF; RBC,URINE 0-5 /HPF (0-5); WBC,URINE (MAN) 0-5 /HPF (0-5)
[2019-10-20 15:35] LABS: THYROID STIMULATING HORMONE 1.452 uIU/mL (0.350-4.940)
--- NOTE | 2019-10-20 16:24 | Diagnostic Imaging Report ---
Examination: CT head without contrast Clinical Indication: Right arm tingling; dizziness. Technique: Transaxial noncontrast images from the skull base through the vertex were obtained. Sagittal and coronal reformatted images were done. Dose modulation, iterative reconstruction, and/or weight based adjustment of the mA/kV was utilized to reduce the radiation dose to as low as reasonably achievable. Comparison: None. Findings: Scalp: No abnormalities. Bones: Intact. No fractures. No blastic or lytic lesions. Brain sulci: Appropriate for patient's age. Ventricles: Normal in size and configuration. No hydrocephalus. Extra-axial space: No abnormalities. Parenchyma: No abnormal densities. No masses, hemorrhage, or acute or chronic cortical based vascular insults. Suprasellar region: No abnormalities. Craniocervical junction: The foramen magnum is patent. No Chiari one malformation. Impression: No intracranial abnormality. Signed by: Dr. Jeannie Candelario M.D. on 10/20/2019 4:21 PM
[2019-10-20 17:13] VITALS: BP 126/81
== END 2019-10-20 17:00 | disposition home or self-care (01) ==
LOC: ER 13:10
DX: R20.2 Paresthesia of skin (principal); R19.7 Diarrhea, unspecified; I10 Essential (primary) hypertension; K21.9 Gastro-esophageal reflux disease without esophagitis; J45.909 Unspecified asthma, uncomplicated; Z98.84 Bariatric surgery status
CPT/HCPCS: 36415; 70450; 80053; 81001; 82550; 82553; 83735; 84443; 84484; 85025; 85610; 85730; 87086; 93005; 99284; C9113; J7030

== ENCOUNTER 2019-12-13 08:21 | Emergency (ER) | payer OTHER ==
[~2019-12-13] VITALS: Ht 157.5 cm; Wt 104.3 kg
--- NOTE | 2019-12-13 08:34 | NUR ---
to room for eval.
[2019-12-13] MEDS ORDERED: KETOROLAC TROMETHAMINE 60 MG/2 ML VIAL IM ONE (08:45)
[2019-12-13] MEDS ORDERED: KETOROLAC TROMETHAMINE 60 MG/2 ML VIAL ONE (09:00)
--- NOTE | 2019-12-13 09:15 | Emergency Department Note ---
History of Present Illnes History of Present Illness Chief Complaint: Skin Rash or Abscess History of Present Illness This is a 49 year old female presents with gradually worsening left forearm pain, swelling, and redness s/p dog bite. Patient was her dogs and one of her dogs bit her once. Both dogs shots up-to-date. No fever/chills. No N/V. No numbness, tingling, weakness. Historian: Patient, Friend Arrival Mode: Car Cardiopulmonary Technologist Required: No Onset (how long ago): day(s) (4) Location: left forearm Quality: sharp Radiation: Denies non-radiation Severity: moderate Onset quality: sudden Duration (how long): day(s) (4) Timing of current episode: constant Progression: worsening Chronicity: new Context: Reports trauma/injury; Denies recent illness Relieving factors: none Exacerbating factors: movement Associated symptoms: Denies cough, Denies fever/chills, Denies nausea/vomiting Past Medical/Family History Physician Review I have reviewed the patient's past medical and family history. Any updates have been documented here. Past Medical History Recent Fever: No Clinical Suspicion of Infectio: Yes New/Unexplained Change in Ment: No Past Medical History: Hypertension, Asthma, GERD Other Medical History: GERD Past Surgical History: Cholecysctectomy, Bariatric Surgery Other Surgery: ovarian cyst in 2004 Social History Smoking Cessation: Unknown if ever smoked Counseling Performed: No Alcohol Use: None Any Illegal Drug Use: No (unk) Other Last Tetanus: UTD Any Pre-Existing Lines (PICC,: No Review of Systems Review of Systems Constitutional: Denies chills, Denies fever EENTM: Denies nose congestion, Denies throat pain Cardiovascular: Denies syncope Respiratory: Denies cough, Denies dyspnea Gastrointestinal: Denies diarrhea Genitourinary: Denies dysuria Musculoskeletal: Denies joint pain Integumentary: Reports as per HPI Neurological: Denies headache Psychological: Denies anxiety Hematological/Lymphatic: Denies swollen glands Physical Exam Related Data Allergies: Coded Allergies: No Known Allergies (Unverified , 03/20/15) Triage Vital Signs Vital Signs Date Time Temp Pulse Resp B/P (MAP) Pulse Ox O2 Delivery O2 Flow Rate FiO2 12/13/19 08:27 98.7 84 18 139/86 98 Room Air Physical Exam CONSTITUTIONAL Constitutional: Present well-developed, Present well-nourished HENT HENT: Present normocephalic, Present atraumatic, Present oropharynx clear/moist, Present nose normal HENT L/R: Present left ext ear normal, Present right ext ear normal EYES Eyes: Reports PERRL, Reports conjunctivae normal NECK Neck: Present ROM normal PULMONARY Pulmonary: Present effort normal, Present breath sounds normal CARDIOVASCULAR Cardiovascular: Present regular rhythm, Present heart sounds normal, Present capillary refill normal, Present normal rate, Present other (+2 radial pusle equal bilaterally. ) GASTROINTESTINAL Abdominal: Present soft, Present nontender, Present bowel sounds normal GENITOURINARY SKIN Skin: Present other (left forearm with erythema, increased warmth to touch over mid radial/dorsal aspect of forearm surounding healing abrasion. No flutuance, no discharge, no mass.) MUSCULOSKELETAL Musculoskeletal: Present other (Stregth 5/5 of bilateral UE equal bilaterally. LTSI of M/U/R. ) NEUROLOGICAL Neurological: Present alert, Present oriented x 3, Present no gross motor or sensory deficits PSYCHOLOGICAL Psychological: Present mood/affect normal, Present judgement normal Assessment & Plan Medical Decision Making MDM Differential includes, but not limited to cellulites and abscess. No evidence of abscess on exam. With treat with antibiotics. Gave strict return precautions. May need IV abx if fails outpatient abx. Assessment & Plan Final Impression: (1) Bite by animal (2) Bite from dog (3) Hypertension (4) Cellulitis Depart Disposition: HOME, SELF-CARE Last Vital Signs Date Time Temp Pulse Resp B/P (MAP) Pulse Ox O2 Delivery O2 Flow Rate FiO2 12/13/19 08:27 98.7 84 18 139/86 98 Room Air Home Meds Active Scripts Gabapentin (NEURONTIN) 300 Mg Capsule, 300 MG PO TID PRN for Mild Pain (1-3) or Fever>100.8, #30 CAP Prov:NOE RYAN SQUADRON WORKER 01/28/19 Reported Medications Cholecalciferol (Vitamin D3) (VITAMIN D) 1,000 Unit Tablet, 5000 UNIT PO DAILY, #30 TAB 12/20/17 Vitamin E Acetate (VITAMIN E) 400 Unit Capsule, 400 UNITS PO UD, #30 CAP ONCE A WEEK 12/20/17 [Tumeric] No Conflict Check, 1 TAB PO DAILY 12/20/17 Multivitamin (MULTIVITAMINS) 1 Each Capsule, 1 CAP PO DAILY 12/20/17 Amlodipine Besylate (AMLODIPINE BESYLATE) 10 Mg Tablet, 10 MG PO DAILY, #30 TAB 12/20/17 Fluoxetine Hcl (FLUOXETINE HCL) 20 Mg Capsule, 20 MG PO DAILY, #30 CAP 12/20/17 Topiramate (TOPAMAX) 25 Mg Tablet, 10 MG PO DAILY 12/20/17 Furosemide (LASIX) 40 Mg Tablet, 40 MG PO DAILY, #30 TAB 12/20/17 Lisinopril (LISINOPRIL) 10 Mg Tablet, 10 MG PO DAILY, #30 TAB 12/20/17 Montelukast Sodium (SINGULAIR) 10 Mg Tablet, 10 MG PO HS PRN for ALLERGY 11/19/13 Albuterol Sulfate (ALBUTEROL SULFATE) 0.63 Mg/3 Ml Vial.neb, 0.63 MG PO prn 08/12/12 Medications in the ED Ketorolac Tromethamine 60 mg ONCE ONCE IM ; Start 12/13/19 at 08:45; Stop 12/13/19 at 08:55; Status DC Ketorolac Tromethamine 60 mg STK-MED ONCE .ROUTE ; Start 12/13/19 at 09:00; Stop 12/13/19 at 08:57; Status DC KANDIS DOTSON MD Dec 13, 2019 09:15
== END 2019-12-13 09:00 | disposition home or self-care (01) ==
LOC: FSED 08:30
DX: S51.812A Laceration without foreign body of left forearm, initial encounter (principal); W54.0XXA Bitten by dog, initial encounter; Y92.008 Other place in unspecified non-institutional (private) residence as the place of occurrence of the external cause; I10 Essential (primary) hypertension; K21.9 Gastro-esophageal reflux disease without esophagitis; J45.909 Unspecified asthma, uncomplicated; Z98.84 Bariatric surgery status
CPT/HCPCS: 99283; J1885

== ENCOUNTER 2019-12-14 18:42 | Emergency (ER) | payer OTHER ==
[~2019-12-14] VITALS: Ht 157.5 cm; Wt 104.3 kg
[2019-12-14] MEDS ORDERED: KETOROLAC TROMETHAMINE 30 MG/ML VIAL IV STA (18:54)
[2019-12-14] MEDS ORDERED: SODIUM CHLORIDE 0.9% 500ML 500 ML IV STA (18:54)
[2019-12-14 19:07] LABS: BASOPHILS # (AUTO) 0.1 (0.0-0.1); BASOPHILS % 0.9 % (0.0-1.0); EOSINOPHILS # (AUTO) 0.2 (0.0-0.4); EOSINOPHILS % 2.6 % (0.0-6.0); HEMATOCRIT 36.7 % (34.2-44.1); HEMOGLOBIN 11.8 g/dL (12.0-16.0); LYMPHOCYTES # (AUTO) 1.9 (1.0-3.2); LYMPHOCYTES % 21.3 % (18.0-39.1); MEAN CORPUSCULAR HGB CONC 32.2 g/dL (31-35); MEAN CORPUSCULAR VOLUME 93.4 fL (81-99); MONOCYTES % 11.3 % (4.4-11.3); NEUTROPHILS # (AUTO) 5.8 (2.1-6.9); NEUTROPHILS % 63.6 % (38.7-80.0); PLATELET COUNT 331 x10e3/uL (140-360); RED BLOOD COUNT 3.93 x10e6/uL (3.6-5.1); RED CELL DISTRIBUTION WIDTH 13.7 % (11.7-14.4)
[2019-12-14 19:28] LABS: ALANINE AMINOTRANSFERASE 13 IU/L (0-55); ALBUMIN 3.4 g/dL (3.5-5.0); ALBUMIN/GLOBULIN RATIO 1.1 (0.8-2.0); ALKALINE PHOSPHATASE 47 IU/L (40-150); ANION GAP 15.7 mmol/L (8-16); BLOOD UREA NITROGEN 15 mg/dL (7-26); BUN/CREATININE RATIO 20 (6-25); CALCIUM 8.5 mg/dL (8.4-10.2); CARBON DIOXIDE 17 mmol/L (22-29); CHLORIDE 110 mmol/L (98-107); CREATININE, SERUM 0.75 mg/dL (0.57-1.11); EST GLOMERULAR FILTRATION RATE > 60 ML/MIN (60-); GLUCOSE 85 mg/dL (74-118); POTASSIUM 3.7 mmol/L (3.5-5.1); SODIUM 139 mmol/L (136-145)
[2019-12-14] MEDS ORDERED: AMPICILLIN SOD/SULBACTAM 1.5GM 50 ML IV STA (19:46)
[2019-12-14] MEDS ORDERED: AMPICILLIN SOD/SULBACTAM 3GM 100 ML IV ONE (21:15)
[2019-12-14 23:16] VITALS: BP 118/68
== END 2019-12-14 23:23 | disposition home or self-care (01) ==
LOC: ER 19:21
DX: L03.90 Cellulitis, unspecified (principal); W54.0XXA Bitten by dog, initial encounter; Y92.008 Other place in unspecified non-institutional (private) residence as the place of occurrence of the external cause; I10 Essential (primary) hypertension; K21.9 Gastro-esophageal reflux disease without esophagitis; J45.909 Unspecified asthma, uncomplicated; Z98.84 Bariatric surgery status
CPT/HCPCS: 36415; 73090; 80053; 83605; 85025; 96374; 99283; J0295 ×2; J1885; J7040

== ENCOUNTER 2020-08-29 07:50 | Emergency (ER) | payer OTHER ==
[~2020-08-29] VITALS: Ht 157.5 cm; Wt 104.3 kg
[2020-08-29] MEDS ORDERED: ALBUTEROL SULF 0.083% NEB SOLN 3 ML NEB NEB STA (08:31)
[2020-08-29] MEDS ORDERED: IPRATROPIUM BROMIDE 0.02% 2.5 ML NEB NEB STA (08:31)
[2020-08-29] MEDS ORDERED: METHYLPREDNISOLONE SOD SUCC 125 MG/2ML VIAL IV STA (08:31)
[2020-08-29] MEDS ORDERED: FAMOTIDINE 20 MG/2 ML VIAL IV STA (08:31)
[2020-08-29 08:49] LABS: BASOPHILS # (AUTO) 0.1 (0.0-0.1); EOSINOPHILS # (AUTO) 0.3 (0.0-0.4); EOSINOPHILS % 3.1 % (0.0-6.0); HEMATOCRIT 36.2 % (34.2-44.1); HEMOGLOBIN 11.4 g/dL (12.0-16.0); LYMPHOCYTES # (AUTO) 2.2 (1.0-3.2); LYMPHOCYTES % 24.8 % (18.0-39.1); MEAN CORPUSCULAR HEMOGLOBIN 29.3 pg (28-32); MEAN CORPUSCULAR HGB CONC 31.5 g/dL (31-35); MEAN CORPUSCULAR VOLUME 93.1 fL (81-99); MONOCYTES # (AUTO) 1.1 (0.2-0.8); MONOCYTES % 12.1 % (4.4-11.3); NEUTROPHILS # (AUTO) 5.1 (2.1-6.9); NEUTROPHILS % 58.8 % (38.7-80.0); PLATELET COUNT 413 x10e3/uL (140-360); RED BLOOD COUNT 3.89 x10e6/uL (3.6-5.1); RED CELL DISTRIBUTION WIDTH 13.6 % (11.7-14.4)
[2020-08-29 09:12] LABS: ALBUMIN 3.2 g/dL (3.5-5.0); ANION GAP 18.6 mmol/L (8-16); CALCIUM 8.1 mg/dL (8.4-10.2); CREATININE, SERUM 0.9 mg/dL (0.57-1.11); POTASSIUM 3.6 mmol/L (3.5-5.1)
[2020-08-29] MEDS ORDERED: SODIUM CHLORIDE 0.9% 50ML 0 ML ONE (09:33)
[2020-08-29] MEDS ORDERED: IOPAMIDOL 370 MG/ML 200 ML INFUS..BTL INJ ONE (09:33)
[2020-08-29 09:55] LABS: CLARITY,URINE CLEAR (CLEAR); COLOR,URINE YELLOW (YELLOW); KETONES,URINE NEGATIVE (NEGATIVE); LEUKOCYTE ESTERASE ,URINE NEGATIVE (NEGATIVE); NITRITE,URINE NEGATIVE (NEGATIVE); PROTEIN,URINE DIPSTICK NEGATIVE (NEGATIVE); URINE UROBILINOGEN 0.2 mg/dL (0.2 - 1)
[2020-08-29 10:15] LABS: BACTERIA,URINE RARE /HPF; EPITHELIAL CELLS,URINE RARE /LPF; WBC,URINE (MAN) 0-5 /HPF (0-5)
[2020-08-29] MEDS ORDERED: SODIUM CHLORIDE 0.9% 100 ML ONE (10:28)
[2020-08-29] MEDS ORDERED: MAALOX MAXIMUM355 ML PO (12:22)
[2020-08-29] MEDS ORDERED: PREDNISONE20 MG PO (12:22)
[2020-08-29] MEDS ORDERED: MAALOX/LIDOCAINE/BENADRYL/NYST 30 ML BTL PO ONE (12:30)
[2020-08-29 12:59] VITALS: BP 130/75
== END 2020-08-29 13:15 | disposition home or self-care (01) ==
LOC: ER 07:52
DX: K62.5 Hemorrhage of anus and rectum (principal); K21.9 Gastro-esophageal reflux disease without esophagitis; I10 Essential (primary) hypertension; J45.909 Unspecified asthma, uncomplicated; Z98.84 Bariatric surgery status
CPT/HCPCS: 36415; 71045; 74174; 80053; 81001; 81025; 82270; 83690; 85025; 99284; J2930; J7050; Q9967

== ENCOUNTER 2020-11-27 14:14 | Emergency (ER) | payer OTHER ==
[~2020-11-27] VITALS: Ht 157.5 cm; Wt 104.3 kg
[~2020-11-27 14:14] MED LIST changes: +MAALOX MAXIMUM355 ML PO; +PREDNISONE20 MG PO
[2020-11-27] MEDS ORDERED: ALBUTEROL/IPRATROPIUM 3 ML NEB NEB ONE (14:30)
[2020-11-27] MEDS ORDERED: DEXAMETHASONE 4 MG TAB PO ONE (15:30)
[2020-11-27] MEDS ORDERED: PREDNISONE50 MG PO (15:42)
[2020-11-27] MEDS ORDERED: PROVENTIL HFA6.7 GM INH (15:42)
[2020-11-27 15:51] VITALS: BP 140/96
== END 2020-11-27 15:53 | disposition home or self-care (01) ==
LOC: ER 14:20
DX: J45.901 Unspecified asthma with (acute) exacerbation (principal); R06.02 Shortness of breath; I10 Essential (primary) hypertension; K21.9 Gastro-esophageal reflux disease without esophagitis
CPT/HCPCS: 99282; J8540

== ENCOUNTER 2021-12-15 22:39 | Emergency (ER) | payer BC, OTHER ==
[~2021-12-15] VITALS: Ht 154.9 cm; Wt 90.7 kg
[~2021-12-15 22:39] MED LIST changes: +PREDNISONE50 MG PO; +PROVENTIL HFA6.7 GM INH
[2021-12-15] MEDS ORDERED: ACETAMINOPHEN 325 MG TAB PO ONE (22:45)
[2021-12-15] MEDS ORDERED: METHYLPREDNISOLONE SOD SUCC 125 MG/2ML VIAL IM ONE (22:45)
[2021-12-15 23:24] LABS: INFLUENZAE A&B ANTIGEN (RAPID) POSITIVE FLU A (NEGATIVE); RESPIRATORY SYNC. VIRUS POSITIVE (NEGATIVE)
[2021-12-16] MEDS ORDERED: ATROVENT HFA12.9 GM INH (00:11)
[2021-12-16] MEDS ORDERED: XOFLUZA80 MG PO (00:13)
[2021-12-16] MEDS ORDERED: ALBUTEROL SULF 0.083% NEB SOLN 3 ML NEB NEB STA (00:42)
[2021-12-16 02:15] VITALS: BP 164/97
[2021-12-17] MEDS ORDERED: PREDNISONE20 MG PO (17:34)
[2021-12-17] MEDS ORDERED: PROAIR HFA INH8.5 GM INH (17:36)
[2021-12-17] MEDS ORDERED: TRAZODONE HCL50 MG PO (17:36)
[2021-12-17] MEDS ORDERED: CLONIDINE HCL0.2 MG PO (17:36)
[2021-12-17] MEDS ORDERED: CYCLOBENZAPRINE10 MG PO (17:36)
== END 2021-12-16 01:55 | disposition home or self-care (01) ==
LOC: ER 22:51
DX: R50.9 Fever, unspecified (principal); J10.1 Influenza due to other identified influenza virus with other respiratory manifestations; J21.0 Acute bronchiolitis due to respiratory syncytial virus; J45.901 Unspecified asthma with (acute) exacerbation; R06.02 Shortness of breath; I10 Essential (primary) hypertension; K21.9 Gastro-esophageal reflux disease without esophagitis; Z20.822 Contact with and (suspected) exposure to COVID-19
CPT/HCPCS: 71045; 87400; 87420; 94640; 94799; 99284; J2930; U0002

== ENCOUNTER 2021-12-17 07:02 | Observation (INO) | payer BC ==
[~2021-12-17] VITALS: Ht 154.9 cm; Wt 90.7 kg
[~2021-12-17 07:02] MED LIST changes: +ATROVENT HFA12.9 GM INH; +XOFLUZA80 MG PO
[2021-12-17] MEDS ORDERED: ALBUTEROL/IPRATROPIUM 3 ML NEB NEB STA (07:05)
[2021-12-17] MEDS ORDERED: METHYLPREDNISOLONE SOD SUCC 125 MG/2ML VIAL IV STA (07:05)
[2021-12-17 07:39] LABS: BASOPHILS % 0.1 % (0.0-1.0); EOSINOPHILS % 0.1 % (0.0-6.0); HEMATOCRIT 40.3 % (34.2-44.1); HEMOGLOBIN 12.2 g/dL (12.0-16.0); LYMPHOCYTES # (AUTO) 0.9 (1.0-3.2); LYMPHOCYTES % 8.9 % (18.0-39.1); MEAN CORPUSCULAR HEMOGLOBIN 29.5 pg (28-32); MEAN CORPUSCULAR HGB CONC 30.3 g/dL (31-35); MEAN CORPUSCULAR VOLUME 97.6 fL (81-99); MONOCYTES # (AUTO) 1.2 (0.2-0.8); MONOCYTES % 11.9 % (4.4-11.3); NEUTROPHILS # (AUTO) 7.8 (2.1-6.9); NEUTROPHILS % 78.8 % (38.7-80.0); PLATELET COUNT 331 x10e3/uL (140-360); RED BLOOD COUNT 4.13 x10e6/uL (3.6-5.1); RED CELL DISTRIBUTION WIDTH 15.1 % (11.7-14.4)
[2021-12-17 08:02] LABS: ALBUMIN 3.6 g/dL (3.5-5.0); ALBUMIN/GLOBULIN RATIO 1.1 (0.8-2.0); ANION GAP 15.9 mmol/L (8-16); CALCIUM 8.7 mg/dL (8.4-10.2); CREATININE, SERUM 0.74 mg/dL (0.57-1.11); POTASSIUM 3.9 mmol/L (3.5-5.1)
[2021-12-17 08:08] LABS: CREATINE KINASE MB 9.4 ng/mL (0-5.0)
[2021-12-17] MEDS ORDERED: ALBUTEROL/IPRATROPIUM 3 ML NEB NEB ONE (10:30)
[2021-12-17] MEDS ORDERED: METHYLPREDNISOLONE SOD SUCC 40 MG/ML VIAL 1ML IV SCH (12:00)
[2021-12-17] MEDS ORDERED: CHLORASEPTIC SPRAY 177 ML BTL MM PRN (12:15)
[2021-12-17] MEDS ORDERED: SIMETHICONE 80 MG CHEW PO PRN (12:15)
[2021-12-17] MEDS ORDERED: DOCUSATE SODIUM 100 MG CAP PO PRN (12:15)
[2021-12-17] MEDS ORDERED: HYDRALAZINE HCL 20 MG/ML VIAL IV PRN (12:15)
[2021-12-17] MEDS ORDERED: DIPHENHYDRAMINE HCL 25 MG CAP PO PRN (12:15)
[2021-12-17] MEDS ORDERED: LIDOCAINE 4% PATCH TP PRN (12:15)
[2021-12-17] MEDS ORDERED: MONTELUKAST SODIUM 10 MG TAB PO PRN (12:15)
[2021-12-17] MEDS ORDERED: DEXTROSE 50% SYRINGE 50 ML IV PRN (12:15)
[2021-12-17] MEDS ORDERED: ONDANSETRON HCL INJ 2MG/ML 2ML 2 MG/ML VIAL IV PRN (12:15)
[2021-12-17] MEDS ORDERED: MELATONIN 5 MG TABLET PO PRN (12:15)
[2021-12-17] MEDS ORDERED: POTASSIUM CHLORIDE 20 MEQ TAB CR PO PRN (12:15)
[2021-12-17] MEDS ORDERED: IOPAMIDOL 370 MG/ML 100 ML INFUS..BTL INJ ONE (13:26)
[2021-12-17] MEDS: OSELTAMIVIR PHOSPHATE 75 MG CAP PO SCH ×2 (15:26→16:17)
[2021-12-17] MEDS: SODIUM CHLORIDE 0.9% 1000ML 1,000 ML IV SCH ×2 (15:26→16:17)
[2021-12-17] MEDS ORDERED: DIPHENHYDRAMINE HCL INJ 50 MG/ML VIAL ONE (15:29)
[2021-12-17 15:30] VITALS: BP 145/91
[2021-12-17] MEDS: ACETAMINOPHEN 325 MG TAB PO PRN (16:00)
[2021-12-17] MEDS: ENOXAPARIN SOD INJ 40 MG/0.4 ML SYR SC SCH (16:17)
[2021-12-17] MEDS: BENZONATATE 100 MG CAP PO PRN (16:50)
[2021-12-17] MEDS ORDERED: PREDNISONE20 MG PO (17:34)
[2021-12-17] MEDS ORDERED: PROAIR HFA INH8.5 GM INH (17:36)
[2021-12-17] MEDS ORDERED: CYCLOBENZAPRINE10 MG PO (17:36)
[2021-12-17] MEDS ORDERED: TRAZODONE HCL50 MG PO (17:36)
[2021-12-17] MEDS ORDERED: CLONIDINE HCL0.2 MG PO (17:36)
[2021-12-17] MEDS: BUDESONIDE/FORMOTEROL 160/4.5MCG INHALER INH SCH (19:15)
[2021-12-17 20:00] VITALS: BP 149/85
[2021-12-17] MEDS: METHYLPREDNISOLONE SOD SUCC 40 MG/ML VIAL 1ML IV SCH (21:00)
[2021-12-18] VITALS (8 sets, daily range): BP systolic 136–175; BP diastolic 86–97
[2021-12-18 01:52] LABS: CREATINE KINASE MB 3.5 ng/mL (0-5.0)
[2021-12-18 05:02] LABS: BASOPHILS % 0.2 % (0.0-1.0); HEMATOCRIT 36.2 % (34.2-44.1); HEMOGLOBIN 11.3 g/dL (12.0-16.0); LYMPHOCYTES # (AUTO) 0.9 (1.0-3.2); LYMPHOCYTES % 13.7 % (18.0-39.1); MEAN CORPUSCULAR HEMOGLOBIN 29.5 pg (28-32); MEAN CORPUSCULAR HGB CONC 31.2 g/dL (31-35); MEAN CORPUSCULAR VOLUME 94.5 fL (81-99); MONOCYTES # (AUTO) 0.7 (0.2-0.8); MONOCYTES % 11.1 % (4.4-11.3); NEUTROPHILS # (AUTO) 4.7 (2.1-6.9); NEUTROPHILS % 74.7 % (38.7-80.0); PLATELET COUNT 270 x10e3/uL (140-360); RED BLOOD COUNT 3.83 x10e6/uL (3.6-5.1)
[2021-12-18 05:25] LABS: ALBUMIN 3.1 g/dL (3.5-5.0); ANION GAP 13.3 mmol/L (8-16); CALCIUM 8.7 mg/dL (8.4-10.2); CREATININE, SERUM 0.73 mg/dL (0.57-1.11); POTASSIUM 4.3 mmol/L (3.5-5.1)
[2021-12-18 06:10] LABS: MAGNESIUM 2.1 MG/DL (1.3-2.1)
[2021-12-18 06:31] LABS: THYROID STIMULATING HORMONE 0.132 uIU/mL (0.350-4.940)
[2021-12-18] MEDS: ALBUTEROL/IPRATROPIUM 3 ML NEB NEB PRN ×4 (06:44→23:30)
[2021-12-18] MEDS: BUDESONIDE/FORMOTEROL 160/4.5MCG INHALER INH SCH ×2 (06:58→19:35)
[2021-12-18] MEDS: SODIUM CHLORIDE 0.9% 1000ML 1,000 ML IV SCH (08:54)
[2021-12-18] MEDS: AMLODIPINE BESYLATE 10 MG TAB PO SCH (08:58)
[2021-12-18] MEDS: LISINOPRIL 10 MG TAB PO SCH (08:59)
[2021-12-18] MEDS: OSELTAMIVIR PHOSPHATE 75 MG CAP PO SCH ×2 (08:59→18:08)
[2021-12-18] MEDS: FLUOXETINE HCL 20 MG CAP PO SCH (08:59)
[2021-12-18] MEDS ORDERED: TOPIRAMATE 25 MG TAB PO SCH (09:00)
[2021-12-18] MEDS: PANTOPRAZOLE SOD 40 MG TABEC PO SCH (09:02)
[2021-12-18] MEDS: METHYLPREDNISOLONE SOD SUCC 40 MG/ML VIAL 1ML IV SCH ×2 (09:02→20:42)
[2021-12-18] MEDS: ACETAMINOPHEN 325 MG TAB PO PRN (09:08)
[2021-12-18] MEDS: ENOXAPARIN SOD INJ 40 MG/0.4 ML SYR SC SCH (18:08)
[2021-12-18] MEDS: BENZONATATE 100 MG CAP PO PRN (20:46)
[2021-12-19] VITALS: BP 138/96
[2021-12-19 04:00] VITALS: BP 147/98
[2021-12-19] MEDS: BUDESONIDE/FORMOTEROL 160/4.5MCG INHALER INH SCH (07:00)
[2021-12-19] MEDS: ALBUTEROL/IPRATROPIUM 3 ML NEB NEB PRN ×2 (07:00→12:46)
[2021-12-19 07:02] LABS: ANION GAP 12.3 mmol/L (8-16); CALCIUM 8.5 mg/dL (8.4-10.2); CREATININE, SERUM 0.71 mg/dL (0.57-1.11); POTASSIUM 4.3 mmol/L (3.5-5.1)
[2021-12-19 08:31] VITALS: BP 137/86
[2021-12-19] MEDS: PANTOPRAZOLE SOD 40 MG TABEC PO SCH (08:44)
[2021-12-19] MEDS: METHYLPREDNISOLONE SOD SUCC 40 MG/ML VIAL 1ML IV SCH (08:44)
[2021-12-19] MEDS: LISINOPRIL 10 MG TAB PO SCH (08:44)
[2021-12-19] MEDS: AMLODIPINE BESYLATE 10 MG TAB PO SCH (08:44)
[2021-12-19] MEDS: ACETAMINOPHEN 325 MG TAB PO PRN (08:45)
[2021-12-19] MEDS: BENZONATATE 100 MG CAP PO PRN (08:45)
[2021-12-19] MEDS: FLUOXETINE HCL 20 MG CAP PO SCH (08:45)
[2021-12-19] MEDS: OSELTAMIVIR PHOSPHATE 75 MG CAP PO SCH (08:45)
[2021-12-19 09:00] VITALS: BP 137/86
[2021-12-19] MEDS ORDERED: AZITHROMYCIN 250 MG TAB PO SCH (09:00)
[2021-12-19] MEDS ORDERED: ALBUTEROL2.5 MG/0.5 NEB (11:10)
[2021-12-19] MEDS ORDERED: TAMIFLU75 MG PO (11:10)
[2021-12-19] MEDS ORDERED: PROAIR HFA INH8.5 GM INH (11:10)
[2021-12-19] MEDS ORDERED: IPRATROPIU0.2 MG/1 M INH (11:10)
[2021-12-19] MEDS ORDERED: PREDNISONE10 MG PO (11:10)
[2021-12-19 11:51] VITALS: BP 133/90
== END 2021-12-19 16:00 | disposition home or self-care (01) ==
LOC: ER 07:07 → ERHOLD 08:23 → MED/SURG2 15:28
PROVIDERS: ADMIT Internal Medicine; ATTEND Internal Medicine
DX: J45.901 Unspecified asthma with (acute) exacerbation (principal); I10 Essential (primary) hypertension; J10.1 Influenza due to other identified influenza virus with other respiratory manifestations; Z20.822 Contact with and (suspected) exposure to COVID-19; J21.0 Acute bronchiolitis due to respiratory syncytial virus
CPT/HCPCS: 36415 ×3; 71045; 71260; 74177; 80048; 80053 ×2; 82550 ×3; 82553 ×2; 83036; 83690; 83735; 83880; 84443; 84484 ×2; 84702; 85025 ×2; 85379; 93005; 94640 ×2; 94664; 94799 ×3; 96361; 99285; G0378 ×3; J0456 ×2; J0696 ×3; J1650 ×2; J2920 ×3; J2930; J7030 ×2; J7050 ×2; Q9967; S0164 ×2; J1200

== ENCOUNTER 2022-04-16 10:34 | Emergency (ER) | payer SELFPAY ==
[~2022-04-16] VITALS: Ht 154.9 cm; Wt 89.8 kg
[~2022-04-16 10:34] MED LIST changes: +ALBUTEROL2.5 MG/0.5 NEB; +BENZONATATE200 MG PO; +CLONIDINE HCL0.2 MG PO; +CYCLOBENZAPRINE10 MG PO; +IPRAT-ALBUT 0.5-3 ML NEB; +IPRATROPIU0.2 MG/1 M INH; +MONTELUKAST SOD10 MG PO; +PROAIR HFA INH8.5 GM INH; +TAMIFLU75 MG PO; +TRAZODONE HCL50 MG PO; +VENTOLIN HFA18 GM INH
[2022-04-16] MEDS ORDERED: LISINOPRIL20 MG PO (11:54)
[2022-04-16] MEDS ORDERED: ALBUTEROL2.5 MG/3 M INH (11:55)
[2022-04-16] MEDS ORDERED: PROVENTIL HFA6.7 GM INH (11:56)
[2022-04-16] MEDS ORDERED: AMOXICILLIN500 MG PO (11:57)
[2022-04-16] MEDS ORDERED: PREDNISONE20 MG PO (11:59)
[2022-04-16] MEDS ORDERED: PREDNISONE 20 MG TAB PO ONE (12:00)
[2022-04-16] MEDS ORDERED: ALBUTEROL/IPRATROPIUM 3 ML NEB NEB ONE (12:00)
[2022-04-16] MEDS ORDERED: PROAIR DIGIHAL90 MCG INH (12:04)
[2022-04-16] MEDS ORDERED: PREDNISONE 20 MG TAB ONE (12:10)
[2022-04-16] MEDS ORDERED: ALBUTEROL/IPRATROPIUM 3 ML NEB ONE (12:11)
== END 2022-04-16 12:31 | disposition home or self-care (01) ==
LOC: FSED 10:39
DX: J02.0 Streptococcal pharyngitis (principal); J45.901 Unspecified asthma with (acute) exacerbation; I10 Essential (primary) hypertension
CPT/HCPCS: 83518; 87400; 99283; J7512

== ENCOUNTER 2022-05-17 14:03 | Emergency (ER) | payer SELFPAY ==
[~2022-05-17] VITALS: Ht 154.9 cm; Wt 89.8 kg
[~2022-05-17 14:03] MED LIST changes: +ALBUTEROL2.5 MG/3 M INH; +AMOXICILLIN500 MG PO; +LISINOPRIL20 MG PO; +PROAIR DIGIHAL90 MCG INH
[2022-05-17] MEDS ORDERED: PROAIR DIGIHAL90 MCG PO (14:18)
[2022-05-17] MEDS ORDERED: ANAPROX DS550 MG PO (14:18)
== END 2022-05-17 15:15 | disposition home or self-care (01) ==
LOC: ER 14:12
DX: S40.022A Contusion of left upper arm, initial encounter (principal); Z76.0 Encounter for issue of repeat prescription; I10 Essential (primary) hypertension; J45.909 Unspecified asthma, uncomplicated; X58.XXXA Exposure to other specified factors, initial encounter; Y93.89 Activity, other specified; Y99.8 Other external cause status; Z79.899 Other long term (current) drug therapy
CPT/HCPCS: 99283

== ENCOUNTER 2022-06-03 18:14 | Emergency (ER) | payer SELFPAY ==
[~2022-06-03] VITALS: Ht 154.9 cm; Wt 91.4 kg
[~2022-06-03 18:14] MED LIST changes: +ANAPROX DS550 MG PO; +PROAIR DIGIHAL90 MCG PO
[2022-06-03] MEDS ORDERED: PROAIR DIGIHAL90 MCG INH (19:02)
[2022-06-03] MEDS ORDERED: ALBUTEROL0.63 MG/3 NEB (19:03)
[2022-06-03] MEDS ORDERED: PREDNISONE50 MG PO (19:04)
[2022-06-03] MEDS ORDERED: LASIX20 MG PO (19:04)
[2022-06-03 19:09] VITALS: BP 137/88
== END 2022-06-03 19:15 | disposition home or self-care (01) ==
LOC: FSED 18:23
DX: R06.02 Shortness of breath (principal); R50.9 Fever, unspecified; I10 Essential (primary) hypertension; Z76.0 Encounter for issue of repeat prescription; J45.909 Unspecified asthma, uncomplicated; F41.9 Anxiety disorder, unspecified; Z98.84 Bariatric surgery status
CPT/HCPCS: 71046; 80053; 83880; 85025; 93005; 99284

== ENCOUNTER 2022-07-19 22:43 | Emergency (ER) | payer OTHER ==
[~2022-07-19] VITALS: Ht 154.9 cm; Wt 91.2 kg
[~2022-07-19 22:43] MED LIST changes: +ALBUTEROL0.63 MG/3 NEB; +LASIX20 MG PO
[2022-07-20] MEDS ORDERED: PROVENTIL HFA6.7 GM INH (00:04)
[2022-07-20] MEDS ORDERED: ZESTRIL20 MG PO (00:06)
[2022-07-20 00:48] VITALS: O2SAT 97
== END 2022-07-20 00:50 | disposition home or self-care (01) ==
LOC: FSED 23:32
DX: S20.01XA Contusion of right breast, initial encounter (principal); I10 Essential (primary) hypertension; J45.909 Unspecified asthma, uncomplicated; F41.9 Anxiety disorder, unspecified; F32.A Depression, unspecified; Z76.0 Encounter for issue of repeat prescription; Z98.84 Bariatric surgery status
CPT/HCPCS: 99282

== ENCOUNTER 2022-08-09 20:21 | Inpatient (IN) | payer OTHER ==
[~2022-08-09] VITALS: Ht 162.6 cm; Wt 93.9 kg
[2022-08-09] MEDS ORDERED: ONDANSETRON HCL INJ 2MG/ML 2ML 2 MG/ML VIAL IV STA (20:43)
[2022-08-09] MEDS ORDERED: SODIUM CHLORIDE 0.9% 1000ML 1,000 ML IV ONE (20:45)
[2022-08-09] MEDS ORDERED: Morphine 4mg INJECTION 4 MG/ML INJ IV ONE (20:45)
[2022-08-09 20:59] LABS: BASOPHILS # (AUTO) 0.1 (0.0-0.1); EOSINOPHILS # (AUTO) 0.4 (0.0-0.4); EOSINOPHILS % 3.8 % (0.0-6.0); HEMOGLOBIN 12.2 g/dL (12.0-16.0); LYMPHOCYTES # (AUTO) 1.6 (1.0-3.2); LYMPHOCYTES % 17.2 % (18.0-39.1); MEAN CORPUSCULAR HEMOGLOBIN 28.9 pg (28-32); MEAN CORPUSCULAR HGB CONC 32.1 g/dL (31-35); MONOCYTES # (AUTO) 0.8 (0.2-0.8); MONOCYTES % 8.4 % (4.4-11.3); NEUTROPHILS # (AUTO) 6.4 (2.1-6.9); NEUTROPHILS % 69.3 % (38.7-80.0); PLATELET COUNT 369 x10e3/uL (140-360); RED BLOOD COUNT 4.22 x10e6/uL (3.6-5.1); RED CELL DISTRIBUTION WIDTH 13.8 % (11.7-14.4)
[2022-08-09 21:24] LABS: ALANINE AMINOTRANSFERASE 12 IU/L (0-55); ALBUMIN 3.7 g/dL (3.5-5.0); ALBUMIN/GLOBULIN RATIO 1.3 (0.8-2.0); ALKALINE PHOSPHATASE 53 IU/L (40-150); BLOOD UREA NITROGEN 15 mg/dL (7-26); BUN/CREATININE RATIO 19 (6-25); CALCIUM 8.8 mg/dL (8.4-10.2); CARBON DIOXIDE 19 mmol/L (22-29); CHLORIDE 105 mmol/L (98-107); GLUCOSE 94 mg/dL (74-118); LIPASE 76 U/L (8-78); SODIUM 136 mmol/L (136-145)
[2022-08-09] MEDS ORDERED: IOPAMIDOL 370 MG/ML 100 ML INFUS..BTL INJ ONE (21:30)
[2022-08-09 21:54] LABS: CLARITY,URINE CLEAR (CLEAR); COLOR,URINE YELLOW (YELLOW); KETONES,URINE TRACE (NEGATIVE); LEUKOCYTE ESTERASE ,URINE NEGATIVE (NEGATIVE); NITRITE,URINE NEGATIVE (NEGATIVE); PROTEIN,URINE DIPSTICK NEGATIVE (NEGATIVE); URINE UROBILINOGEN 0.2 mg/dL (0.2 - 1)
[2022-08-09 22:01] LABS: BACTERIA,URINE FEW /HPF; EPITHELIAL CELLS,URINE FEW /LPF; RBC,URINE 0-5 /HPF (0-5); WBC,URINE (MAN) 0-5 /HPF (0-5)
[2022-08-09] MEDS ORDERED: SUCRALFATE 1 GM TAB PO STA (23:18)
[2022-08-09] MEDS ORDERED: DONNATAL/LIDOCAINE/MAALOX 30 ML SUSP PO ONE (23:30)
[2022-08-09] MEDS ORDERED: MAGNESIUM/ALUMINUM/SIMETHICONE 30 ML UDC ONE (23:35)
[2022-08-09] MEDS ORDERED: BELLADONNA ALK/PHENOBARBITAL 5 ML UDC ONE (23:35)
[2022-08-09] MEDS ORDERED: MAGNESIUM/ALUMINUM/SIMETHICONE 30 ML UDC PO ONE (23:45)
[2022-08-09] MEDS ORDERED: LIDOCAINE VISC 2% SOLN 15 ML UDC PO ONE (23:45)
[2022-08-09] MEDS ORDERED: BELLADONNA ALK/PHENOBARBITAL 5 ML UDC PO SCH (23:45)
[2022-08-10] VITALS (12 sets, daily range): BP systolic 139–163; BP diastolic 86–90; PULSE 71–89; RESP 16–20; TEMP 97.8–99; O2SAT 94–100
[2022-08-10] MEDS ORDERED: FENTANYL CITRATE/PF 100MCG/2 ML INJ IV ONE (00:15)
[2022-08-10] MEDS ORDERED: ALBUTEROL/IPRATROPIUM 3 ML NEB NEB ONE (00:30)
[2022-08-10] MEDS ORDERED: ONDANSETRON HCL INJ 2MG/ML 2ML 2 MG/ML VIAL IV PRN (00:30)
[2022-08-10] MEDS: SODIUM CHLORIDE 0.9% 1000ML 1,000 ML IV SCH ×4 (00:30→23:16)
[2022-08-10 00:35] LABS: AMPHETAMINES SCREEN,URINE NEGATIVE (NEGATIVE); BENZODIAZEPINES SCREEN,URINE NEGATIVE (NEGATIVE); PHENCYCLIDINE SCREEN,URINE NEGATIVE (NEGATIVE)
[2022-08-10] MEDS ORDERED: FENTANYL CITRATE/PF 100MCG/2 ML INJ ONE (00:41)
[2022-08-10] MEDS ORDERED: HALOPERIDOL LACTATE 5 MG/ML VIAL IV ONE (01:00)
[2022-08-10] MEDS ORDERED: ZIPRASIDONE 20 MG VIAL IM STA (04:14)
[2022-08-10] MEDS: ALBUTEROL SULF 0.083% NEB SOLN 3 ML NEB NEB PRN ×3 (09:47→18:30)
[2022-08-10] MEDS: LORAZEPAM INJ 2 MG/ML VIAL IV PRN (22:12)
[2022-08-11] VITALS (10 sets, daily range): BP systolic 125–178; BP diastolic 79–107; PULSE 74–90; RESP 18–20; TEMP 97.4–99.6; O2SAT 93–100
[2022-08-11 05:40] LABS: BASOPHILS % 0.6 % (0.0-1.0); EOSINOPHILS # (AUTO) 0.2 (0.0-0.4); EOSINOPHILS % 2.5 % (0.0-6.0); HEMATOCRIT 32.3 % (34.2-44.1); LYMPHOCYTES % 28.7 % (18.0-39.1); MEAN CORPUSCULAR HEMOGLOBIN 28.6 pg (28-32); MEAN CORPUSCULAR VOLUME 92.3 fL (81-99); MONOCYTES # (AUTO) 0.9 (0.2-0.8); MONOCYTES % 12.6 % (4.4-11.3); NEUTROPHILS # (AUTO) 3.8 (2.1-6.9); NEUTROPHILS % 55.3 % (38.7-80.0); PLATELET COUNT 298 x10e3/uL (140-360)
[2022-08-11 05:50] LABS: INR 0.99; PROTHROMBIN TIME 13.6 seconds (11.9-14.5)
[2022-08-11 05:51] LABS: PARTIAL THROMBOPLASTIN TIME 30.3 seconds (23.8-35.5)
[2022-08-11 06:01] LABS: ALBUMIN 2.8 g/dL (3.5-5.0); ALBUMIN/GLOBULIN RATIO 0.9 (0.8-2.0); ANION GAP 10.4 mmol/L (8-16); CALCIUM 8.5 mg/dL (8.4-10.2); CREATININE, SERUM 0.68 mg/dL (0.57-1.11); POTASSIUM 3.4 mmol/L (3.5-5.1)
[2022-08-11] MEDS: ALBUTEROL SULF 0.083% NEB SOLN 3 ML NEB NEB PRN ×3 (09:00→21:30)
[2022-08-11] MEDS ORDERED: ALBUTEROL SULFATE HFA 8GM INHALATION AEROSOL INH PRN (09:00)
[2022-08-11] MEDS: SODIUM CHLORIDE 0.9% 1000ML 1,000 ML IV SCH ×2 (09:40→17:24)
[2022-08-11] MEDS ORDERED: HYDRALAZINE HCL 20 MG/ML VIAL IV STA (17:00)
[2022-08-11] MEDS: LORAZEPAM INJ 2 MG/ML VIAL IV PRN (21:29)
[2022-08-11] MEDS: TRAZODONE HCL 50 MG TAB PO SCH (22:51)
[2022-08-11] MEDS: LISINOPRIL 20 MG TAB PO SCH (22:51)
[2022-08-11] MEDS ORDERED: DONNATAL/LIDOCAINE/MAALOX 30 ML SUSP PO ONE (23:30)
[2022-08-11] MEDS ORDERED: LIDOCAINE VISC 2% SOLN 15 ML UDC ONE (23:55)
[2022-08-12] VITALS (10 sets, daily range): BP systolic 146–167; BP diastolic 85–99; PULSE 68–91; RESP 18–22; TEMP 97.4–98.6; O2SAT 96–100
[2022-08-12] MEDS ORDERED: MAGNESIUM/ALUMINUM/SIMETHICONE 30 ML UDC PO ONE (00:15)
[2022-08-12] MEDS ORDERED: LIDOCAINE VISC 2% SOLN 15 ML UDC PO ONE (00:15)
[2022-08-12] MEDS ORDERED: BELLADONNA ALK/PHENOBARBITAL 5 ML UDC PO ONE (00:15)
[2022-08-12] MEDS: HYDRALAZINE HCL 20 MG/ML VIAL IV PRN ×3 (00:24→23:58)
[2022-08-12] MEDS: SODIUM CHLORIDE 0.9% 1000ML 1,000 ML IV SCH ×4 (03:41→23:45)
[2022-08-12] MEDS: LORAZEPAM INJ 2 MG/ML VIAL IV PRN ×2 (03:42→20:19)
[2022-08-12 05:02] LABS: BASOPHILS # (AUTO) 0.1 (0.0-0.1); BASOPHILS % 0.7 % (0.0-1.0); EOSINOPHILS # (AUTO) 0.2 (0.0-0.4); EOSINOPHILS % 3.1 % (0.0-6.0); HEMATOCRIT 30.2 % (34.2-44.1); HEMOGLOBIN 9.5 g/dL (12.0-16.0); LYMPHOCYTES # (AUTO) 1.6 (1.0-3.2); LYMPHOCYTES % 21.7 % (18.0-39.1); MEAN CORPUSCULAR HEMOGLOBIN 28.2 pg (28-32); MEAN CORPUSCULAR HGB CONC 31.5 g/dL (31-35); MEAN CORPUSCULAR VOLUME 89.6 fL (81-99); MONOCYTES # (AUTO) 0.9 (0.2-0.8); MONOCYTES % 12.1 % (4.4-11.3); NEUTROPHILS # (AUTO) 4.5 (2.1-6.9); PLATELET COUNT 301 x10e3/uL (140-360); RED BLOOD COUNT 3.37 x10e6/uL (3.6-5.1); RED CELL DISTRIBUTION WIDTH 13.7 % (11.7-14.4)
[2022-08-12 05:26] LABS: ALBUMIN 2.7 g/dL (3.5-5.0); ALBUMIN/GLOBULIN RATIO 0.9 (0.8-2.0); ANION GAP 10.9 mmol/L (8-16); CALCIUM 8.3 mg/dL (8.4-10.2); CREATININE, SERUM 0.64 mg/dL (0.57-1.11)
[2022-08-12 05:49] LABS: POTASSIUM 2.9 mmol/L (3.5-5.1)
[2022-08-12] MEDS ORDERED: POTASSIUM CHLORIDE 10MEQ/100ML 100 ML IV SCH (07:30)
[2022-08-12] MEDS ORDERED: POTASSIUM CHLORIDE 20 MEQ TAB CR PO ONE (07:30)
[2022-08-12] MEDS ORDERED: FUROSEMIDE 20 MG TAB PO SCH (09:00)
[2022-08-12] MEDS ORDERED: LISINOPRIL 20 MG TAB PO SCH ×2 (09:00)
[2022-08-12] MEDS: ALBUTEROL SULF 0.083% NEB SOLN 3 ML NEB NEB PRN ×2 (10:35→19:16)
[2022-08-12] MEDS ORDERED: POTASSIUM CHLORIDE 10MEQ/100ML 100 ML IV ONE (10:45)
[2022-08-12] MEDS: FUROSEMIDE 20 MG TAB PO SCH (17:22)
[2022-08-12] MEDS: LISINOPRIL 20 MG TAB PO SCH (17:23)
[2022-08-12] MEDS ORDERED: TRAZODONE HCL 50 MG TAB PO SCH (21:00)
[2022-08-12] MEDS ORDERED: ACETAMINOPHEN 325 MG TAB PO PRN (21:45)
[2022-08-12] MEDS: TRAZODONE HCL 50 MG TAB PO SCH (23:45)
[2022-08-13] VITALS (8 sets, daily range): BP systolic 146–166; BP diastolic 85–111; PULSE 67–88; RESP 16–20; TEMP 97.8–98.7; O2SAT 96–99
[2022-08-13] MEDS: LORAZEPAM INJ 2 MG/ML VIAL IV PRN ×2 (02:09→09:13)
[2022-08-13 05:50] LABS: BASOPHILS # (AUTO) 0.1 (0.0-0.1); BASOPHILS % 0.8 % (0.0-1.0); EOSINOPHILS # (AUTO) 0.4 (0.0-0.4); EOSINOPHILS % 5.9 % (0.0-6.0); HEMATOCRIT 31.7 % (34.2-44.1); HEMOGLOBIN 10.1 g/dL (12.0-16.0); LYMPHOCYTES # (AUTO) 1.5 (1.0-3.2); MEAN CORPUSCULAR HEMOGLOBIN 28.5 pg (28-32); MEAN CORPUSCULAR HGB CONC 31.9 g/dL (31-35); MEAN CORPUSCULAR VOLUME 89.5 fL (81-99); MONOCYTES # (AUTO) 0.7 (0.2-0.8); MONOCYTES % 12.4 % (4.4-11.3); NEUTROPHILS # (AUTO) 3.3 (2.1-6.9); NEUTROPHILS % 55.7 % (38.7-80.0); PLATELET COUNT 329 x10e3/uL (140-360); RED BLOOD COUNT 3.54 x10e6/uL (3.6-5.1); RED CELL DISTRIBUTION WIDTH 13.7 % (11.7-14.4)
[2022-08-13 06:17] LABS: ANION GAP 11.2 mmol/L (8-16); CALCIUM 8.4 mg/dL (8.4-10.2); CREATININE, SERUM 0.64 mg/dL (0.57-1.11); MAGNESIUM 1.7 MG/DL (1.3-2.1); POTASSIUM 3.2 mmol/L (3.5-5.1)
[2022-08-13] MEDS: ALBUTEROL SULF 0.083% NEB SOLN 3 ML NEB NEB PRN (08:25)
[2022-08-13] MEDS: FUROSEMIDE 20 MG TAB PO SCH (09:00)
[2022-08-13] MEDS: LISINOPRIL 20 MG TAB PO SCH (09:00)
[2022-08-13] MEDS: SODIUM CHLORIDE 0.9% 1000ML 1,000 ML IV SCH ×2 (09:15→16:30)
[2022-08-13 14:29] LABS: AMPHETAMINES SCREEN,URINE NEGATIVE (NEGATIVE); BENZODIAZEPINES SCREEN,URINE POSITIVE (NEGATIVE); PHENCYCLIDINE SCREEN,URINE NEGATIVE (NEGATIVE)
[2022-08-13] MEDS: HYDRALAZINE HCL 20 MG/ML VIAL IV PRN (14:58)
[2022-08-13] MEDS ORDERED: POTASSIUM CHLORIDE 20 MEQ TAB CR PO ONE (18:15)
== END 2022-08-13 19:00 | disposition home or self-care (01) | DRG 392 ==
LOC: ER 20:28 → ERHOLD 08-10 00:27 → MED/SURG 08-10 03:25 → OBSVTOIN 08-11 09:08
PROVIDERS: ADMIT Internal Medicine; ATTEND Internal Medicine
DX: K21.9 Gastro-esophageal reflux disease without esophagitis (principal); Z20.822 Contact with and (suspected) exposure to COVID-19; J45.909 Unspecified asthma, uncomplicated; I10 Essential (primary) hypertension; K44.9 Diaphragmatic hernia without obstruction or gangrene; F17.200 Nicotine dependence, unspecified, uncomplicated; E66.9 Obesity, unspecified; F14.10 Cocaine abuse, uncomplicated; E87.6 Hypokalemia; Z68.35 Body mass index [BMI] 35.0-35.9, adult; F41.9 Anxiety disorder, unspecified; F32.A Depression, unspecified; Z90.49 Acquired absence of other specified parts of digestive tract; Z98.84 Bariatric surgery status
CPT/HCPCS: 0223U; 36415; 74177; 74240; 74248; 80048; 80053; 80307; 81001; 83690; 83735; 84702; 85025; 85610; 85730; 93005; 94640; 94799; 99284; G0378; J1630; J2060; J2270; J2405; J3480; J7030; Q9967

== ENCOUNTER 2023-01-18 18:38 | Emergency (ER) | payer OTHER ==
[~2023-01-18] VITALS: Ht 154.9 cm; Wt 93.4 kg
[~2023-01-18 18:38] MED LIST changes: +CLARITIN10 MG PO; +MUCINEX DM ER1 EAC1 PO
[2023-01-18] MEDS ORDERED: PREDNISONE50 MG PO (19:08)
[2023-01-18] MEDS ORDERED: ALBUTEROL/IPRATROPIUM 3 ML NEB NEB ONE ×2 (19:15)
[2023-01-18] MEDS ORDERED: PREDNISONE 20 MG TAB PO ONE ×2 (19:15)
[2023-01-18] MEDS ORDERED: ALBUTEROL0.63 MG/3 NEB (19:16)
[2023-01-18 19:17] VITALS: BP 152/87
[2023-01-18] MEDS ORDERED: PREDNISONE 20 MG TAB ONE (19:20)
[2023-01-18] MEDS ORDERED: ALBUTEROL/IPRATROPIUM 3 ML NEB ONE (19:21)
[2023-01-18 19:31] VITALS: PULSE 74; RESP 17; O2SAT 100
== END 2023-01-18 20:27 | disposition home or self-care (01) ==
LOC: FSED 18:54
DX: R06.02 Shortness of breath (principal); H66.91 Otitis media, unspecified, right ear; J45.901 Unspecified asthma with (acute) exacerbation; R05.9 Cough, unspecified; I10 Essential (primary) hypertension; F41.9 Anxiety disorder, unspecified; F17.210 Nicotine dependence, cigarettes, uncomplicated
CPT/HCPCS: 99283; J7512

== ENCOUNTER 2023-09-15 19:08 | Emergency (ER) | payer OTHER ==
[~2023-09-15] VITALS: Ht 154.9 cm; Wt 93.9 kg
[~2023-09-15 19:08] MED LIST changes: +BENADRYL25 M1 PO; +DIPHENHYDRAMINE25 M2 PO; +GABAPENTIN100 MG PO; +LEVOFLOXACIN250 MG PO; +MECLIZINE HCL25 MG PO; +MULTIVITAMINS1 EAC6 PO; +NAPROSYN500 MG PO; +ONDANSETRON ODT4 MG PO; +TYLENOL325 MG PO
[2023-09-15 19:15] VITALS: PULSE 98; RESP 18; TEMP 98
[2023-09-15] MEDS ORDERED: IPRATROPIUM BROMIDE 17 MCG ACTUATION INHALER INH SCH ×2 (19:15)
[2023-09-15] MEDS ORDERED: ALBUTEROL/IPRATROPIUM 3 ML NEB NEB ONE (19:15)
[2023-09-15] MEDS ORDERED: ALBUTEROL SULF 0.083% NEB SOLN 3 ML NEB ONE (19:17)
[2023-09-15] MEDS ORDERED: IPRATROPIUM BROMIDE 0.02% 2.5 ML NEB ONE (19:17)
[2023-09-15] MEDS ORDERED: MAGNESIUM SULFATE 2GM/50ML 50 ML IV ONE (19:22)
[2023-09-15] MEDS: ALBUTEROL SULF 0.083% NEB SOLN 3 ML NEB NEB STA (20:01)
[2023-09-15] MEDS: METHYLPREDNISOLONE SOD SUCC 125 MG/2ML VIAL IV ONE (20:02)
[2023-09-15] MEDS: IPRATROPIUM BROMIDE 0.02% 2.5 ML NEB NEB STA (20:02)
[2023-09-15] MEDS: MAGNESIUM SULFATE 2GM/50ML 50 ML IV ONE (20:02)
[2023-09-15] MEDS ORDERED: VENTOLIN HFA18 GM INH (20:41)
[2023-09-15] MEDS ORDERED: LISINOPRIL10 MG PO (20:43)
[2023-09-15] MEDS ORDERED: ALBUTEROL/IPRATROPIUM 3 ML NEB ONE (20:55)
[2023-09-15] MEDS: ALBUTEROL/IPRATROPIUM 3 ML NEB NEB ONE (21:12)
[2023-09-15 22:31] VITALS: BP 134/71; PULSE 80; RESP 18; TEMP 98.3; O2SAT 98
[2023-09-16] MEDS ORDERED: IPRATROPIUM BROMIDE 0.02% 2.5 ML NEB NEB SCH (01:00)
== END 2023-09-15 21:30 | disposition home or self-care (01) ==
LOC: FSED 19:13
DX: R06.02 Shortness of breath (principal); J45.909 Unspecified asthma, uncomplicated; I10 Essential (primary) hypertension; F41.9 Anxiety disorder, unspecified; F32.A Depression, unspecified; Z98.84 Bariatric surgery status
CPT/HCPCS: 80048; 85025; 99284; J2919; J3475

== ENCOUNTER 2023-10-26 15:22 | Emergency (ER) | payer OTHER ==
[~2023-10-26] VITALS: Ht 154.9 cm; Wt 93.9 kg
[2023-10-26 15:30] VITALS: PULSE 81; RESP 24; TEMP 98.7
[2023-10-26] MEDS ORDERED: ALBUTEROL/IPRATROPIUM 3 ML NEB ONE (16:28)
[2023-10-26] MEDS: ALBUTEROL/IPRATROPIUM 3 ML NEB NEB ONE (16:37)
[2023-10-26] MEDS ORDERED: TAMIFLU6 MG/1 ML PO (16:42)
[2023-10-26] MEDS ORDERED: PREDNISONE20 MG PO (16:44)
[2023-10-26] MEDS ORDERED: BENZONATATE200 MG PO (16:53)
[2023-10-26] MEDS ORDERED: ALBUTEROL1.25 MG/3 NEB (16:56)
[2023-10-26] MEDS: PREDNISONE 20 MG TAB PO ONE (17:00)
[2023-10-26 17:42] VITALS: BP 129/84; PULSE 79; RESP 18; TEMP 98.4; O2SAT 98
== END 2023-10-26 17:38 | disposition home or self-care (01) ==
LOC: FSED 16:07
DX: J10.1 Influenza due to other identified influenza virus with other respiratory manifestations (principal); I10 Essential (primary) hypertension; Z20.822 Contact with and (suspected) exposure to COVID-19
CPT/HCPCS: 0223U; 71046; 87400; 99283; J7512

== ENCOUNTER 2024-01-16 13:44 | Emergency (ER) | payer OTHER ==
[~2024-01-16] VITALS: Ht 154.9 cm; Wt 97.8 kg
[~2024-01-16 13:44] MED LIST changes: +ALBUTEROL1.25 MG/3 NEB; +TAMIFLU6 MG/1 ML PO
[2024-01-16 13:57] VITALS: TEMP 98.1
[2024-01-16] MEDS ORDERED: TRAZODONE HCL100 MG PO (14:08)
[2024-01-16] MEDS ORDERED: POTASSIUM CHLO20 ME1 PO (14:08)
[2024-01-16] MEDS: PREDNISONE 20 MG TAB PO ONE (14:41)
[2024-01-16] MEDS: ALBUTEROL/IPRATROPIUM 3 ML NEB NEB ONE ×3 (14:42→15:28)
[2024-01-16 15:16] VITALS: PULSE 70; RESP 28
[2024-01-16 16:59] VITALS: BP 145/90; PULSE 89; RESP 20; TEMP 98.4; O2SAT 98
== END 2024-01-16 16:55 | disposition home or self-care (01) ==
LOC: FSED 14:05
DX: R06.02 Shortness of breath (principal); J45.909 Unspecified asthma, uncomplicated; I10 Essential (primary) hypertension; F41.9 Anxiety disorder, unspecified; F32.A Depression, unspecified; Z11.52 Encounter for screening for COVID-19; Z98.84 Bariatric surgery status
CPT/HCPCS: 0223U; 71045; 87400; 99283; J7512

== ENCOUNTER 2024-02-06 11:00 | Emergency (ER) | payer OTHER ==
[~2024-02-06] VITALS: Ht 154.9 cm; Wt 98.9 kg
[~2024-02-06 11:00] MED LIST changes: +POTASSIUM CHLO20 ME1 PO; +TRAZODONE HCL100 MG PO
[2024-02-06 11:10] VITALS: PULSE 90; RESP 20; TEMP 96.5; O2SAT 96
[2024-02-06] MEDS ORDERED: AZITHROMYCIN250 MG PO (11:25)
[2024-02-06] MEDS ORDERED: PREDNISONE50 MG PO (11:27)
[2024-02-06] MEDS ORDERED: PROAIR DIGIHAL90 MCG INH (11:27)
== END 2024-02-06 11:35 | disposition left against medical advice (07) ==
LOC: FSED 11:07
DX: R06.02 Shortness of breath (principal); J20.9 Acute bronchitis, unspecified; J45.909 Unspecified asthma, uncomplicated; R05.9 Cough, unspecified; F17.210 Nicotine dependence, cigarettes, uncomplicated
CPT/HCPCS: 99284

== ENCOUNTER 2024-02-24 17:24 | Emergency (ER) | payer OTHER ==
[~2024-02-24] VITALS: Ht 154.9 cm; Wt 105.4 kg
[2024-02-24 17:28] VITALS: PULSE 90; RESP 18; TEMP 97.7
[2024-02-24] MEDS ORDERED: SYMBICORT 16010.2 GM INH (17:44)
[2024-02-24] MEDS ORDERED: MONTELUKAST SOD10 MG PO (17:44)
[2024-02-24] MEDS ORDERED: FUROSEMIDE40 MG PO (19:38)
[2024-02-24 19:41] VITALS: BP 164/83; O2SAT 97
== END 2024-02-24 19:46 | disposition home or self-care (01) ==
LOC: FSED 17:29
DX: R60.9 Edema, unspecified (principal); M17.11 Unilateral primary osteoarthritis, right knee; I10 Essential (primary) hypertension; J45.909 Unspecified asthma, uncomplicated; F41.9 Anxiety disorder, unspecified; F32.A Depression, unspecified; G47.00 Insomnia, unspecified; Z98.84 Bariatric surgery status; F17.210 Nicotine dependence, cigarettes, uncomplicated
CPT/HCPCS: 93971; 99284

== ENCOUNTER 2024-06-20 17:21 | Emergency (ER) | payer OTHER ==
[~2024-06-20] VITALS: Ht 154.9 cm; Wt 105.2 kg
[~2024-06-20 17:21] MED LIST changes: +FUROSEMIDE40 MG PO; +SYMBICORT 16010.2 GM INH
[2024-06-20] MEDS: ALBUTEROL/IPRATROPIUM 3 ML NEB NEB ONE (18:07)
[2024-06-20] MEDS ORDERED: ALBUTEROL/IPRATROPIUM 3 ML NEB ONE (18:09)
[2024-06-20] MEDS: DEXAMETHASONE SOD PHOS INJ 4 MG/ML SDV IM ONE (18:11)
[2024-06-20 19:10] VITALS: PULSE 95; RESP 26
[2024-06-20] MEDS: ALBUTEROL SULF 0.083% NEB SOLN 3 ML NEB NEB STA (19:10)
[2024-06-20] MEDS ORDERED: PROAIR DIGIHAL90 MCG INH (19:21)
[2024-06-20] MEDS ORDERED: PREDNISONE20 MG PO (19:22)
[2024-06-20] MEDS ORDERED: FLUNISOLIDE25 ML (19:23)
[2024-06-20] MEDS ORDERED: ALBUTEROL1.25 MG/3 NEB (19:24)
[2024-06-20 19:37] VITALS: PULSE 95; RESP 26; TEMP 98.7; O2SAT 98
== END 2024-06-20 19:41 | disposition home or self-care (01) ==
LOC: FSED 17:35
DX: J45.901 Unspecified asthma with (acute) exacerbation (principal); J33.9 Nasal polyp, unspecified; I10 Essential (primary) hypertension; G47.00 Insomnia, unspecified; F41.9 Anxiety disorder, unspecified; F32.A Depression, unspecified; Z98.84 Bariatric surgery status
CPT/HCPCS: 99284; J1100

== ENCOUNTER 2024-09-12 19:44 | Emergency (ER) | payer OTHER ==
[~2024-09-12] VITALS: Ht 154.9 cm; Wt 114.8 kg
[~2024-09-12 19:44] MED LIST changes: +FLUNISOLIDE25 ML
[2024-09-12] MEDS: SODIUM CHLORIDE 0.9% 1000ML 1,000 ML IV STA (20:52)
[2024-09-12] MEDS: ALBUTEROL/IPRATROPIUM 3 ML NEB NEB ONE ×3 (20:53→22:00)
[2024-09-12] MEDS: METHYLPREDNISOLONE SOD SUCC 125 MG/2ML VIAL IV ONE (20:53)
[2024-09-12] MEDS: MAGNESIUM SULFATE 2GM/50ML 50 ML IV ONE (20:53)
[2024-09-12] MEDS: HYDROCODONE/APAP 5MG-325MG TAB PO ONE (20:54)
[2024-09-12] MEDS: CYCLOBENZAPRINE HCL 10 MG TAB PO ONE (20:54)
[2024-09-12] MEDS: AZITHROMYCIN 250 MG TAB PO ONE (21:41)
[2024-09-12 22:25] VITALS: PULSE 80; RESP 18; TEMP 97.8
[2024-09-12] MEDS ORDERED: KETOROLAC TROME10 MG PO (22:26)
[2024-09-12] MEDS ORDERED: METHOCARBAMOL750 MG PO (22:26)
[2024-09-12] MEDS ORDERED: ALBUTEROL1.25 MG/3 NEB (22:26)
[2024-09-12] MEDS ORDERED: VENTOLIN HFA18 GM INH (22:26)
[2024-09-12] MEDS ORDERED: ZITHROMAX250 MG PO (22:26)
[2024-09-12] MEDS ORDERED: PREDNISONE20 MG PO (22:26)
[2024-09-12 22:35] VITALS: BP 146/73; PULSE 81; RESP 18; TEMP 97.8; O2SAT 98
== END 2024-09-12 22:39 | disposition home or self-care (01) ==
LOC: FSED 19:49
DX: R05.9 Cough, unspecified (principal); J45.901 Unspecified asthma with (acute) exacerbation; Z11.52 Encounter for screening for COVID-19
CPT/HCPCS: 0223U; 71046; 80048; 83880; 84484; 85025; 85379; 85610; 87400; 87420; 93005; 96374; 99284; J2919; J3475; J7030

== ENCOUNTER 2024-12-12 17:47 | Emergency (ER) | payer OTHER ==
[~2024-12-12] VITALS: Ht 154.9 cm; Wt 111.1 kg
[~2024-12-12 17:47] MED LIST changes: +KETOROLAC TROME10 MG PO; +METHOCARBAMOL750 MG PO; +ZITHROMAX250 MG PO
[2024-12-12] MEDS: DEXAMETHASONE SOD PHOS INJ 4 MG/ML SDV IM ONE (18:40)
[2024-12-12] MEDS: KETOROLAC TROMETHAMINE 60 MG/2 ML VIAL IM ONE (18:40)
[2024-12-12] MEDS: HYDROCODONE/APAP 5MG-325MG TAB PO ONE (18:41)
[2024-12-12] MEDS ORDERED: METHOCARBAMOL500 MG PO (19:20)
[2024-12-12] MEDS ORDERED: NEURONTIN300 MG PO (19:20)
[2024-12-12 19:27] VITALS: PULSE 80; RESP 16; TEMP 97.6
[2024-12-12 19:33] VITALS: BP 123/77; PULSE 80; RESP 16; TEMP 97.6; O2SAT 98
== END 2024-12-12 19:29 | disposition home or self-care (01) ==
LOC: FSED 18:00
DX: M54.42 Lumbago with sciatica, left side (principal); I10 Essential (primary) hypertension; G47.00 Insomnia, unspecified; F41.9 Anxiety disorder, unspecified; F32.A Depression, unspecified; Z98.84 Bariatric surgery status
CPT/HCPCS: 96372; 99284; J1100; J1885

== ENCOUNTER 2024-12-15 21:59 | Emergency (ER) | payer OTHER ==
[~2024-12-15] VITALS: Ht 154.9 cm; Wt 121.6 kg
[~2024-12-15 21:59] MED LIST changes: +METHOCARBAMOL500 MG PO
[2024-12-15] MEDS: HYDROCODONE/APAP 5MG-325MG TAB PO ONE (23:32)
[2024-12-15] MEDS: KETOROLAC TROMETHAMINE 30 MG/ML VIAL IV STA (23:32)
[2024-12-15] MEDS: SODIUM CHLORIDE 0.9% 1000ML 1,000 ML IV ONE (23:33)
[2024-12-16] MEDS: TETANUS/DIPHTHERIA TOX ADULT 0.5 ML SYR IM ONE ×2 (00:17→00:21)
[2024-12-16] MEDS ORDERED: KETOROLAC TROME10 MG PO (00:28)
[2024-12-16] MEDS ORDERED: AMOX TR-K CLV1 EAC2 PO (00:28)
[2024-12-16] MEDS: DIPHTH,PERTUSS(ACELL),TET VAC 0.5 ML SYRINGE IM ONE (00:29)
[2024-12-16 00:44] VITALS: PULSE 80; RESP 16; TEMP 98.2
[2024-12-16 00:45] VITALS: BP 145/71; PULSE 80; RESP 16; TEMP 98.2; O2SAT 97
== END 2024-12-16 00:48 | disposition home or self-care (01) ==
LOC: FSED 22:51
DX: L03.113 Cellulitis of right upper limb (principal); S50.871A Other superficial bite of right forearm, initial encounter; W54.0XXA Bitten by dog, initial encounter; Y92.89 Other specified places as the place of occurrence of the external cause; I10 Essential (primary) hypertension; J45.909 Unspecified asthma, uncomplicated; F41.9 Anxiety disorder, unspecified; F32.A Depression, unspecified; G47.00 Insomnia, unspecified; Z98.84 Bariatric surgery status
CPT/HCPCS: 80053; 85025; 90471; 96372; 96374; 99284; J1885; J7030